=== PATIENT | male | born 1950 | race Caucasian/White ===

== ENCOUNTER 2019-02-01 13:56 | Inpatient (IN) | payer OTHER ==
[2019-02-01] MEDS ORDERED: MORPHINE 4 MG/ML SYR ONE (14:50)
[2019-02-01] MEDS ORDERED: ONDANSETRON 4 MG/2 ML VIAL ONE (14:50)
[2019-02-01] MEDS ORDERED: NA CHLORIDE 0.9% 1,000 ML ONE (14:50)
[2019-02-01 15:05] LABS: Absolute Lymphocytes (CBC) 2.9 K/uL (0.7-4.9); Basophils % 0.5 % (0-1.3); Hematocrit 43.8 % (39.6-49.0); Lymphocytes % 28.2 % (15.3-44.8); MPV 7.7 fL (7.6-11.3); RBC Red Blood Cell Count 5.01 M/uL (4.33-5.43)
[2019-02-01 15:25] LABS: Albumin 3.7 g/dL (3.4-5.0); Bilirubin Direct 0.1 mg/dL (0-0.2); Bilirubin Total 0.4 mg/dL (0.2-1.0); Protein, Total 7.8 g/dL (6.4-8.2)
--- NOTE | 2019-02-01 16:35 | RAD REPORT ---
EXAM DESCRIPTION: CT - Abdomen Pelvis W Contrast - 02/01/2019 3:44 pm CLINICAL HISTORY: Abdominal pain COMPARISON: None. TECHNIQUE: Biphasic, helical CT imaging of the abdomen and pelvis was performed following 100 ml non -ionic IV contrast. No oral contrast was given. All CT scans are performed using dose optimization technique as appropriate and may include automated exposure control or mA/KV adjustment according to patient size. FINDINGS: No suspicious findings in the lung bases. The liver, spleen, and pancreas show no suspicious findings. Gallbladder and biliary tree are also wi thout suspicious finding. Symmetric renal function is seen with no hydronephrosis or suspicious renal mass. No pyelonephritis o r acute parenchymal process. No bladder abnormalities. No adrenal abnormalities. No gastric dilatation or gastric wall thickening. Duodenum is normal. No dilation of the colon. Sigmo id diverticulosis is present without diverticulitis. The appendix is normal. The patient has a large complex ventral hernia. There are several compartments of this large hernia collectively measuring 22 cm in size. The hernia contains multiple loops of small bowel that extend into, out of and then gómez k into the hernia. The superior margin of the hernia contains the anti mesenteric margin of the mid t ransverse colon. There is stranding and adhesions the multiple compartments. Multiple dila rosita small bowel loops are present within the hernia as well as within the peritoneal cavity. No free air or pneumatosis. Point of obstruction appears to be adhesions or fibrotic stranding among the mult iple compartments of the hernia. No free air, free fluid or pneumatosis. Disc and bony degenerative changes are present. No acute vascular finding. IMPRESSION: Small bowel obstruction secondary to a large 22 centimeter complex ventral hernia. The h ernia has multiple compartments by fibrotic stranding and probable adhesions. The obstructi on is believed to be secondary to this fibrotic stranding and adhesions. Hernia contains multiple dilated and nondilated small bowel loops that are seen to enter, exit and re -enter 1 or more of the complex chambers of the hernia. Hernia contains a portion of the mid transver se colon. No free air. No perforation or surgically emergent finding otherwise noted.
--- NOTE | 2019-02-01 17:32 | EDPHYS ---
Physician Documentation [facility] Name: Torito Garcia Age: 68 yrs Sex: Male : 1950 Arrival Date: 02/01/2019 Time: 14:00 Bed 28 Private MD: Livan Jewell E ED Physician Trino Muñoz HPI: 02/01 14:39 This 68 yrs old Male presents to ER via Ambulatory with complaints of Hernia. jmm 14:39 The patient presents with abdominal pain. Onset: The symptoms/episode began/occurred jmm gradually, 2 week(s) ago. The symptoms do not radiate. Associated signs and symptoms: Pertinent positives: nausea. The symptoms are described as achy. This is a 68 year old male with a history of htn that presents to the ED with complaints of generalized abdominal pain beginning 2 weeks ago progressively worsened. Patient has a history of 4 bowel surgeries due to obstruction. Symptoms are worsened with eating. . Historical: - Allergies: 14:21 No Known Allergies; aa5 - Home Meds: 14:21 Atenolol Oral [Active]; lisinopril Oral [Active]; aa5 - PMHx: 14:21 Hypertension; aa5 - PSHx: 14:21 Hernia repair; aa5 - Immunization history:: Flu vaccine is not up to date. - Social history:: Smoking status: Patient/guardian denies using tobacco. - Ebola Screening: : No symptoms or risks identified at this time. ROS: 14:39 Constitutional: Negative for fever, chills, and weight loss, Cardiovascular: Negative jmm for chest pain, palpitations, and edema, Respiratory: Negative for shortness of breath, cough, wheezing, and pleuritic chest pain. 14:39 Abdomen/GI: Positive for abdominal pain, vomiting. 14:39 All other systems are negative. Exam: 14:39 Constitutional: This is a well developed, well nourished patient who is awake, alert, jmm and in no acute distress. Head/Face: atraumatic. Eyes: EOMI, no conjunctival erythema appreciated ENT: Moist Mucus Membranes Neck: Trachea midline, Supple Chest/axilla: Normal chest wall appearance and motion. Cardiovascular: Regular rate and rhythm. No edema appreciated Respiratory: Normal respirations, no respiratory distress appreciated 14:39 Back: Normal ROM Skin: General appearance color normal MS/ Extremity: Moves all extremities, no obvious deformities appreciated, no edema noted to the lower extremities Neuro: Awake and alert, normal gait Psych: Behavior is normal, Mood is normal, Patient is cooperative and pleasant 14:39 Abdomen/GI: Inspection: distension, that is moderate, Bowel sounds: active, Palpation: soft, mild abdominal tenderness, in all quadrants, Hernia: noted in the paraumbilical area and umbilical area. Vital Signs: 14:21 BP 145 / 79; Pulse 60; Resp 18 S; Temp 98.7(TE); Pulse Ox 96% on R/A; Weight 107.5 kg aa5 (R); Height 5 ft. 6 in. (167.64 cm) (R); Pain 7/10; 16:23 BP 120 / 75; Pulse 56; Resp 15; Pulse Ox 95% on R/A; aj1 17:30 BP 112 / 69; Pulse 57; Resp 16; Pulse Ox 96% on R/A; aj1 18:30 BP 125 / 68; Pulse 55; Resp 18; Pulse Ox 95% on R/A; aj1 14:21 Body Mass Index 38.25 (107.50 kg, 167.64 cm) aa5 MDM: 14:37 Patient medically screened. [facility] 17:29 Data reviewed: vital signs, nurses notes, lab test result(s), radiologic studies, CT [facility] scan. Counseling: I had a detailed discussion with the patient and/or guardian regarding: the historical points, exam findings, and any diagnostic results supporting the discharge/admit diagnosis, lab results, radiology results, the need for further work-up and treatment in the hospital. ED course: I discussed the patient with Dr. Redd whom will consult on admission. I discussed the patient with Kaushik Jordan PA-C whom accepted admission for Dr. Keene. . 02/01 14:37 Order name: Basic Metabolic Panel; Complete Time: 15:39 [facility] 02/01 14:37 Order name: CBC with Diff; Complete Time: 15:39 [facility] 02/01 14:37 Order name: Creatinine for Radiology; Complete Time: 15:39 [facility] 02/01 14:37 Order name: Hepatic Function; Complete Time: 15:39 [facility] 02/01 14:37 Order name: Lipase; Complete Time: 15:39 [facility] 02/01 14:37 Order name: Lactate; Complete Time: 15:39 [facility] 02/01 14:37 Order name: IV Saline Lock; Complete Time: 14:57 [facility] 02/01 14:38 Order name: CT Abd/Pelvis - IV Contrast Only; Complete Time: 17:28 [facility] 02/01 17:51 Order name: CONS Physician Consult [facility] 02/01 14:37 Order name: Labs collected and sent; Complete Time: 14:57 [facility] 02/01 17:15 Order name: NG Tube; Complete Time: 17:37 [facility] Administered Medications: 15:03 Drug: morphine 4 mg {Note: RASS score 0 Patient is alert.} Route: IVP; Site: left 1 antecubital; 16:05 Follow up: Response: No adverse reaction; Pain is decreased; RASS: Alert and Calm (0) [facility] 15:03 Drug: Zofran 4 mg Route: IVP; Site: left antecubital; [facility] 16:05 Follow up: Response: No adverse reaction [facility] 15:04 Drug: NS 0.9% 1000 ml Route: IV; Rate: 1 bolus; Site: left antecubital; [facility] 20:23 Follow up: IV Status: Completed infusion; IV Intake: 1000ml [facility] 17:55 CANCELLED (Patient Refused): Lidocaine Gel 2 % 1 application Mucous Membrane once [facility] 18:09 Not Given (pharmacy no longer supplies this medication): Hurricane Sheffield - Benzocaine 1 20 % 1 sprays Mucous Membrane in affected area once Disposition: 02/02 07:02 Co-signature as Attending Physician, Trino Muñoz MD. rn Disposition: 02/01/19 17:30 Hospitalization ordered by Belinda Keene for Inpatient Admission. Preliminary diagnosis is Bowel Obstruction. - Bed requested for Telemetry/MedSurg (Inpatient). - Status is Inpatient Admission. aj1 - Condition is Stable. - Problem is an acute exacerbation. - Symptoms have improved. UTI on Admission? No Signatures: Dispatcher [employer] [facility] Justyna Araujo Angela, RN RN aj1 Delfino Perez PA PA [facility] Trino Muñoz MD MD rn Calderon, Audri RN RN aa5 Corrections: (The following items were deleted from the chart) 02/01 17:55 17:46 Lidocaine Gel 2 % 1 application Mucous Membrane once ordered. [facility] aj1 18:53 17:30 Hospitalization Ordered by Belinda Keene MD for Inpatient Admission. Preliminary bd diagnosis is Bowel Obstruction. Bed requested for Telemetry/MedSurg (Inpatient). Status is Inpatient Admission. Condition is Stable. Problem is an acute exacerbation. Symptoms have improved. UTI on Admission? No. m 20:24 18:53 02/01/2019 17:30 Hospitalization Ordered by Belinda Keene MD for Inpatient aj1 Admission. Preliminary diagnosis is Bowel Obstruction. Bed requested for Telemetry/MedSurg (Inpatient). Status is Inpatient Admission. Condition is Stable. Problem is an acute exacerbation. Symptoms have improved. UTI on Admission? No. bd
--- NOTE | 2019-02-01 17:32 | ER ---
Nurse's Notes [facility] Name: Torito Garcia Age: 68 yrs Sex: Male : 1950 Arrival Date: 02/01/2019 Time: 14:00 Bed 28 Private MD: Livan Jewell E Diagnosis: Bowel Obstruction Presentation: 02/01 14:19 Presenting complaint: Patient states: "my stomach hurts, eating makes it worse and I aa5 have hernias". Pt reports abd pain x 2 weeks. Transition of care: patient was not received from another setting of care. Onset of symptoms was 2018. Risk Assessment: Do you want to hurt yourself or someone else? Patient reports no desire to harm self or others. Initial Sepsis Screen: Does the patient meet any 2 criteria? No. Patient's initial sepsis screen is negative. Does the patient have a suspected source of infection? No. Patient's initial sepsis screen is negative. Care prior to arrival: None. 14:19 Acuity: SAIGE 3 aa5 14:19 Method Of Arrival: Ambulatory aa5 Historical: - Allergies: 14:21 No Known Allergies; aa5 - Home Meds: 14:21 Atenolol Oral [Active]; lisinopril Oral [Active]; aa5 - PMHx: 14:21 Hypertension; aa5 - PSHx: 14:21 Hernia repair; aa5 - Immunization history:: Flu vaccine is not up to date. - Social history:: Smoking status: Patient/guardian denies using tobacco. - Ebola Screening: : No symptoms or risks identified at this time. Screenin:12 Abuse screen: Denies threats or abuse. Denies injuries from another. Nutritional aj1 screening: No deficits noted. Tuberculosis screening: No symptoms or risk factors identified. 20:22 Fall Risk None identified. aj1 Assessment: 15:00 General: Appears in no apparent distress. uncomfortable, Behavior is calm, cooperative, aj1 appropriate for age. Pain: Complains of pain in abdomen. Neuro: Level of Consciousness is awake, alert, obeys commands. Cardiovascular: Patient's skin is warm and dry. Respiratory: Airway is patent Respiratory effort is even, unlabored, Respiratory pattern is regular, symmetrical. GI: Abdomen is round distended, Bowel sounds hyperactive in right upper quadrant and left upper quadrant Abd is soft and non tender X 4 quads. Reports lower abdominal pain, upper abdominal pain, nausea, Patient currently denies vomiting. : No signs and/or symptoms were reported regarding the genitourinary system. EENT: No signs and/or symptoms were reported regarding the EENT system. Derm: No signs and/or symptoms reported regarding the dermatologic system. Skin is pink, warm \\T\\ dry. normal. Musculoskeletal: No signs and/or symptoms reported regarding the musculoskeletal system. Circulation, motion, and sensation intact. 16:23 Reassessment: Patient appears in no apparent distress at this time. No changes from aj1 previously documented assessment. Patient and/or family updated on plan of care and expected duration. Pain level reassessed. Patient is alert, oriented x 3, equal unlabored respirations, skin warm/dry/pink. 17:30 Reassessment: Patient and/or family updated on plan of care and expected duration. Pain aj1 level reassessed. General: Appears in no apparent distress. comfortable, Behavior is calm, cooperative, appropriate for age. Pain: Denies pain. Neuro: Level of Consciousness is awake, alert, obeys commands. Cardiovascular: Patient's skin is warm and dry. Respiratory: Airway is patent Respiratory effort is even, unlabored, Respiratory pattern is regular, symmetrical. GI: Abdomen is round distended, Bowel sounds hyperactive in right upper quadrant and left upper quadrant hypoactive in right lower quadrant and left lower quadrant Abd is soft and non tender X 4 quads. Reports nausea, Patient currently denies vomiting. Derm: No signs and/or symptoms reported regarding the dermatologic system. Skin is pink, warm \\T\\ dry. normal. Musculoskeletal: Circulation, motion, and sensation intact. 18:33 Reassessment: Patient appears in no apparent distress at this time. No changes from aj1 previously documented assessment. Patient and/or family updated on plan of care and expected duration. Pain level reassessed. Patient is alert, oriented x 3, equal unlabored respirations, skin warm/dry/pink. 19:30 Reassessment: Patient appears in no apparent distress at this time. No changes from aj1 previously documented assessment. Patient and/or family updated on plan of care and expected duration. Pain level reassessed. Patient is alert, oriented x 3, equal unlabored respirations, skin warm/dry/pink. 19:31 Reassessment: Attempted to call report to 4th floor, receiving nurse unable to take aj1 report at this time. Will attempt again in a few minutes. 20:00 Reassessment: Patient appears in no apparent distress at this time. No changes from aj1 previously documented assessment. Patient and/or family updated on plan of care and expected duration. Pain level reassessed. Patient is alert, oriented x 3, equal unlabored respirations, skin warm/dry/pink. Vital Signs: 14:21 BP 145 / 79; Pulse 60; Resp 18 S; Temp 98.7(TE); Pulse Ox 96% on R/A; Weight 107.5 kg aa5 (R); Height 5 ft. 6 in. (167.64 cm) (R); Pain 7/10; 16:23 BP 120 / 75; Pulse 56; Resp 15; Pulse Ox 95% on R/A; aj1 17:30 BP 112 / 69; Pulse 57; Resp 16; Pulse Ox 96% on R/A; aj1 18:30 BP 125 / 68; Pulse 55; Resp 18; Pulse Ox 95% on R/A; aj1 14:21 Body Mass Index 38.25 (107.50 kg, 167.64 cm) aa5 ED Course: 14:00 Patient arrived in ED. mr 14:00 Livan Jewell MD is Private Physician. mr 14:19 Arm band placed on. aa5 14:21 Triage completed. aa5 14:25 Delfino Perez PA is PHCP. [facility] 14:25 Trino Muñoz MD is Attending Physician. [facility] 14:41 aRdha Torrez, RN is Primary Nurse. aj1 14:56 Bed in low position. Call light in reach. Side rails up X 1. Pillow given. Verbal jp3 reassurance given. Pulse ox on. NIBP on. 14:56 Initial lab(s) drawn, by me, sent to lab. Inserted saline lock: 20 gauge in left jp3 antecubital area, using aseptic technique. Blood collected. Patient maintains SpO2 saturation greater than 95% on room air. 14:57 Lactate Sent. jp3 14:57 Basic Metabolic Panel Sent. jp3 14:57 CBC with Diff Sent. jp3 14:57 Creatinine for Radiology Sent. jp3 14:57 Hepatic Function Sent. jp3 14:57 Lipase Sent. jp3 15:45 CT Abd/Pelvis - IV Contrast Only In Process Unspecified. EDMS 16:12 No provider procedures requiring assistance completed. aj1 17:30 Belinda Keene MD is Hospitalizing Provider. jmm 17:38 NGT: inserted 16 Fr. via right nare. verified placement of air over stomach, to ca1 intermittent suction. Returned gastric contents. Patient tolerated well. 18:30 Patient admitted, IV remains in place. aj1 20:00 Report given to ALIE Sanchez. aj1 Administered Medications: 15:03 Drug: morphine 4 mg {Note: RASS score 0 Patient is alert.} Route: IVP; Site: left aj1 antecubital; 16:05 Follow up: Response: No adverse reaction; Pain is decreased; RASS: Alert and Calm (0) aj1 15:03 Drug: Zofran 4 mg Route: IVP; Site: left antecubital; aj1 16:05 Follow up: Response: No adverse reaction aj1 15:04 Drug: NS 0.9% 1000 ml Route: IV; Rate: 1 bolus; Site: left antecubital; aj1 20:23 Follow up: IV Status: Completed infusion; IV Intake: 1000ml aj1 17:55 CANCELLED (Patient Refused): Lidocaine Gel 2 % 1 application Mucous Membrane once aj1 18:09 Not Given (pharmacy no longer supplies this medication): Hurricane Harper - Benzocaine aj1 20 % 1 sprays Mucous Membrane in affected area once Intake: 20:23 IV: 1000ml; Total: 1000ml. aj1 Outcome: 17:30 Decision to Hospitalize by Provider. [facility] 20:22 Admitted to Med/surg accompanied by tech, via wheelchair, with chart. aj1 20:22 Condition: stable 20:22 Discharge instructions given to patient, Instructed on the need for admit, Demonstrated understanding of instructions. 20:24 Patient left the ED. aj1 Signatures: Dispatcher [employer] EDMS Radha Torrez, RN RN aj1 Delfino Perez PA PA Kylah Thomas HarpCammie catalan, RN RN aa5 Geoff Davis jp3 Brittney Gupta RN RN ca1
[2019-02-01] MEDS ORDERED: LIDOCAINE VISCOUS 2% SOLN 15 ML UDC ONE (18:02)
--- NOTE | 2019-02-01 18:16 | P.HP ---
Certification for Inpatient Patient admitted to: Inpatient With expected LOS: >2 Midnights Patient will require the following post-hospital care: None Practitioner: I am a practitioner with admitting privileges, knowledge of patient current condition, hospital course, and medical plan of care. Services: Services provided to patient in accordance with Admission requirements found in Title 42 Section 412.3 of the Code of Federal Regulations <Aldo Jordan - Last Filed: 02/01/19 18:10> Patient History Date of Service: 02/01/19 Primary Care Provider: Jewell Reason for admission: Small bowel obstruction History of Present Illness: This is a 68-year-old male that came to the emergency department day you for week long history of abdominal pain that is progressively getting worse. Having associated nausea as well. History of small-bowel obstructions secondary to hernias in the past. Patient stated that his abdomen is becoming more distended and he is becoming more nauseated. Labs and CT with IV contrast was completed in the emergency department showing small-bowel obstruction. Nasogastric tube was placed with immediate output of about 300 mL. Patient hemodynamically stable and feeling better. Labs unremarkable. Doctor Wai Redd will be consulting on the case. Home medications list reviewed: Yes - Past Medical/Surgical History Has patient received pneumonia vaccine in the past: No Diabetic: No -: Hernia -: Hernia repair -: Small bowel resection - Social History Smoking Status: Never smoker Alcohol use: No CD- Drugs: No Caffeine use: No Place of Residence: Home <Aldo Jordan - Last Filed: 02/01/19 18:10> Date of Service: 02/01/19 <Belinda Keene - Last Filed: 02/01/19 18:29> Review of Systems General: Unremarkable Eyes: Unremarkable ENT: Unremarkable Respiratory: Unremarkable Cardiovascular: Unremarkable Gastrointestinal: Nausea, Abdominal Pain, Distention, As per HPI Musculoskeletal: Unremarkable Integumentary: Unremarkable Neurological: Unremarkable Lymphatics: Unremarkable <Aldo Jordan - Last Filed: 02/01/19 18:10> Physical Examination - Vital Signs Temperature: 98.7 F Blood Pressure: 145/79 Pulse: 60 Respirations: 18 Pulse Ox (%): 96 - Physical Exam General: Alert, In no apparent distress, Oriented x3, Cooperative HEENT: Normocephalic, PERRLA, Mucous membr. moist/pink, EOMI Neck: Supple, 2+ carotid pulse no bruit, JVD not distended, No Thyromegaly, No LAD Respiratory: Clear to auscultation bilaterally, Normal air movement Cardiovascular: No edema, Normal pulses, Regular rate/rhythm, Normal S1 S2, No gallops, No rubs, No murmurs Capillary refill: <2 Seconds Gastrointestinal: Normal bowel sounds, No masses, No rebound, No guarding, Distended, Tenderness (Mild tenderness diffusely) Musculoskeletal: No clubbing, No swelling, No contractures, No erythema, No tenderness, No warmth Integumentary: No rashes, No breakdown, No significant lesion, No tenderness/ swelling, No erythema, No warmth, No cyanosis Neurological: Normal speech, Normal strength at 5/5 x4 extr, Normal tone, Sensation intact, Cranial nerves 3-12 intact, Normal reflexes 2+, Normal affect Lymphatics: No axilla or inguinal lymphadenopathy - Studies Laboratory Data (last 24 hrs) 02/01/19 14:50: Creatinine 1.11 02/01/19 14:50: WBC 10.2, Hgb 14.6, Hct 43.8, Plt Count 257 02/01/19 14:50: Sodium 141, Potassium 4.0, BUN 14, Creatinine 1.11, Glucose 91, Total Bilirubin 0.4, AST 13 L, ALT 20, Alkaline Phosphatase 87, Lipase 131 <Aldo Jordan - Last Filed: 02/01/19 18:10> - Studies Laboratory Data (last 24 hrs) 02/01/19 14:50: Creatinine 1.11 02/01/19 14:50: WBC 10.2, Hgb 14.6, Hct 43.8, Plt Count 257 02/01/19 14:50: Sodium 141, Potassium 4.0, BUN 14, Creatinine 1.11, Glucose 91, Total Bilirubin 0.4, AST 13 L, ALT 20, Alkaline Phosphatase 87, Lipase 131 <Belinda Keene - Last Filed: 02/01/19 18:29> Assessment and Plan - Problems (Diagnosis) (1) Hypertension Current Visit: Yes Status: Chronic Qualifiers: Hypertension type: essential hypertension Qualified Code(s): I10 - Essential (primary) hypertension (2) Small bowel obstruction Current Visit: Yes Status: Acute (3) Ventral hernia Current Visit: Yes Status: Chronic Qualifiers: Obstruction and gangrene presence: without obstruction or gangrene Qualified Code(s): K43.9 - Ventral hernia without obstruction or gangrene - Plan The patient will be admitted to the hospitalist team. General Surgery has been consulted. Patient has a NG tube and that will be remain in place and will be connected to low intermittent suction to decompress small-bowel. Patient will be given IV fluids continuously and also pain meds and nausea meds as needed. Blood pressure will be controlled via IV medication. Patient will remain NPO. Labs will be assessed daily along with physical exam to ensure small-bowel obstruction is resolving. It is expected that patient will be here for least 2 days. Discharge Plan: Home Plan to discharge in: Greater than 2 days - Advance Directives Does patient have a Living Will: No Does patient have a Durable POA for Healthcare: No - Code Status/Comfort Care Code Status Assessed: Yes Code Status: Full Code Critical Care: No Time Spent Managing Pts Care (In Minutes): 50 <Aldo Jordan - Last Filed: 02/01/19 18:10> Physician Review: Patient Assessed, Agree with Above Assessment and Plan <Belinda Keene - Last Filed: 02/01/19 18:29>
[2019-02-01] MEDS ORDERED: METOPROLOL TARTRATE 5 MG/5 ML INJ IV PRN (20:35)
[2019-02-01] MEDS ORDERED: MORPHINE 4 MG/ML SYR IV PRN (20:35)
[2019-02-01 22:18] VITALS: BMI 37.9
[2019-02-01] MEDS: D5 0.45 NS 1,000 ML IV SCH (22:41)
[2019-02-02 02:24] LABS: Urine Appearance CLEAR; Urine Blood NEGATIVE (NEG); Urine Color YELLOW; Urine Glucose NEGATIVE (NEG); Urine Protein NEGATIVE (NEG); Urine Specific Gravity >=1.030 (1.005-1.030); Urine pH 5.5 (5.0-7.0)
[2019-02-02 03:07] LABS: Urine Microscopic Reflex NO UMIC
[2019-02-02 03:58] LABS: Urine Bilirubin NEGATIVE (NEG)
[2019-02-02 04:16] LABS: MPV 7.8 fL (7.6-11.3)
[2019-02-02 04:21] LABS: Absolute Lymphocytes (CBC) 3.5 K/uL (0.7-4.9); Basophils % 0.7 % (0-1.3); Hematocrit 40.5 % (39.6-49.0); Lymphocytes % 35.2 % (15.3-44.8); RBC Red Blood Cell Count 4.59 M/uL (4.33-5.43)
[2019-02-02 04:41] LABS: Potassium 3.9 mmol/L (3.5-5.1)
[2019-02-02] MEDS: D5 0.45 NS 1,000 ML IV SCH ×2 (05:36→17:45)
[2019-02-02] MEDS ORDERED: PNEUMOCOCCAL VACCINE 0.5 ML IMVAC ONE (08:00)
--- NOTE | 2019-02-02 12:48 | CON ---
Date of Consultation: 02/02/2019 Brief History Of Present Illness: Patient is a 68-year-old male who came into the hospital with approximately 2-week history of worsening abdominal pain globally over his abdomen. He states that he has had bloating, distention, and belching. No emesis but had 1 episode of attempted emesis himself which was unsuccessful, passing anything other than gas and some phlegm. He continues to hav e bowel movements every day and passes gas but he felt that the pain got progressively worse, was a c rescendo decrescendo type pain over his global abdomen, worse in the bilateral upper quadrants. He h as not had similar episodes before in the past. He had an NG tube placed in the emergency room, matt h gave him significant immediate relief as well. His past medical history is significant for umbilical hernia repair beginning in 2001. He has had 5 or 6 abdominal hernia surgeries. His followup from the initial was for hernia recurrence with ingrow th of intestine into the mesh. He had a biologic mesh placed at that time, had a recurrence, had ano ther mesh replaced following that by his report and ultimately had that mesh removed as well and he h ad a primary closure at that time, being told that he would likely have a recurrence. He is unsure i f he had a mesh placed on the last surgery, which would have been biologic. He thinks if it was plac ed, but cannot remember the details, this was in 2017. He now comes back with a recurrent abdominal ventral hernia with abdominal pain and nausea and vomiting as described. He denies smoking, alcohol, recreational drug use. Physical Examination: Vital Signs: At the time of my examination are a BMI of 37. His blood pressure was 141/77, pulse 56 , respiratory rate 18, temperature 97.9. General: He is awake, alert, oriented. Psychiatric: Appropriate, conversive. HEENT: Normocephalic. Sclerae icteric. Mucosa membranes are moist. Oropharynx clear. Neck: Supple. No JVD. Chest: Normal expansion and excursion. Cardiovascular: Regular rate and rhythm. Pulmonary: Clear to auscultation bilaterally. Abdomen: Soft with global tenderness, mild tenderness to palpation. No rebound. No guarding. No f ocal peritonitis. He has a well-healed surgical scar in the midline. There is multiple ventral marguerite ias to the midline and ventral abdominal wall, but his abdomen is also generally obese. Extremities: No clubbing, cyanosis, or edema. Laboratory Data: Reveals white blood cell count of 9.9, hemoglobin 13.6, hematocrit of 40.5, platele t count is 203, neutrophils are normal at 54%. His sodium is 143, potassium 3.9, chloride 108, carbo n dioxide 30, BUN 12, creatinine 1.1, glucose is 100, calcium 8.2, AST 13, ALT 20, alkaline phosphata se is 87, lipase 131. UA was negative. He had a CT scan performed of the abdomen and pelvis. The o fficial dictation is read as small bowel obstruction secondary to a large 22 cm complex ventral herni a. The hernia has multiple compartment by fibrotic stranding and probable adhesions. The obstruction is believed to be secondary due to this fibrotic stranding and adhesions. Hernia contain s multiple dilated, nondilated small bowel loops that are seen to enter, exit, re-enter, 1 or more co mplex chambers of the hernia. Hernia contains a portion of the mid transverse colon as well. There is no free air, no perforation or surgically emergent findings otherwise. Assessment And Plan: This is a 68-year-old male who comes in with a complex ventral abdominal wall c ausing a partial small bowel obstruction. 1.IV fluid hydration. 2.N.p.o. status and continue NG tube decompression. 3.Serial abdominal exams. 4.If patient is able to successfully be treated nonoperatively, I recommend outpatient surgical dyan nstruction of his abdominal wall preferably in laparoscopic approach. However, I recommend getting a ll of his previous surgical notes. Reviewing his past imaging, with his current imaging to help surg ical planning for a reconstruction should he get through this episode without any need for emergent s urgery. I have explained the risks, benefits, alternatives of the above stated plan. The patient agrees to proceed as indicated. IVAN/ALBERTO Voice ID: [id number] Report ID: [id number]
[2019-02-02] MEDS: ONDANSETRON 4 MG/2 ML VIAL IV PRN (13:21)
--- NOTE | 2019-02-02 15:06 | P.PN ---
Subjective Date of Service: 02/02/19 Primary Care Provider: Fanta Chief Complaint: Small bowel obstruction Subjective: Improving Patient seen and examined at bedside. Chart reviewed and case discussed with nursing staff. Patient doing better today. Nausea still there, denies any vomiting this am. Abdominal pain resolved Reports no bowel movement since yesterday but passing gas today. Review of Systems 10-point ROS is otherwise unremarkable Physical Examination - Vital Signs Temperature: 97.5 F Blood Pressure: 116/71 Pulse: 54 Respirations: 18 Pulse Ox (%): 93 - Physical Exam General: Alert, In no apparent distress, Obese HEENT: Atraumatic, PERRLA, EOMI Neck: Supple, JVD not distended Respiratory: Clear to auscultation bilaterally, Normal air movement Cardiovascular: Regular rate/rhythm, Normal S1 S2 Gastrointestinal: Normal bowel sounds, No tenderness Musculoskeletal: No tenderness Integumentary: No rashes Neurological: Normal speech, Normal tone, Normal affect Lymphatics: No axilla or inguinal lymphadenopathy - Studies Laboratory Data (last 24 hrs) 02/01/19 14:50: Creatinine 1.11 02/01/19 14:50: WBC 10.2, Hgb 14.6, Hct 43.8, Plt Count 257 02/01/19 14:50: Sodium 141, Potassium 4.0, BUN 14, Creatinine 1.11, Glucose 91, Total Bilirubin 0.4, AST 13 L, ALT 20, Alkaline Phosphatase 87, Lipase 131 Assessment And Plan - Current Problems (Diagnosis) (1) Small bowel obstruction Current Visit: Yes Status: Acute Plan: Likely secondary to adhesions/scar tissue from prior surgeries vs large hernia. -General surgery consult, recommendations appreciated. Recommends no surgical intervention at this time. -Continue medical management - keep NPO, NGT in place with LIWS. -NGT continues to drain. -Pain and nausea control (2) Hypertension Current Visit: Yes Status: Chronic Plan: Will continue IV blood pressure medications. Monitor and adjust as needed. Qualifiers: Hypertension type: essential hypertension Qualified Code(s): I10 - Essential (primary) hypertension (3) Ventral hernia Current Visit: Yes Status: Chronic Qualifiers: Obstruction and gangrene presence: without obstruction or gangrene Qualified Code(s): K43.9 - Ventral hernia without obstruction or gangrene Physician Review: Patient Assessed, Agree with Above Assessment and Plan
[2019-02-02 16:53] VITALS: O2SAT 94
[2019-02-03] MEDS: ONDANSETRON 4 MG/2 ML VIAL IV PRN (01:54)
[2019-02-03] MEDS: D5 0.45 NS 1,000 ML IV SCH ×3 (01:54→23:47)
[2019-02-03] MEDS ORDERED: PANTOPRAZOLE 40 MG INJ IVP ONE (04:19)
--- NOTE | 2019-02-03 11:11 | P.PN ---
Subjective Date of Service: 02/03/19 Primary Care Provider: Fanta Chief Complaint: Small bowel obstruction Subjective: Improving (no pain, no nausae, + return of bowel function, +BM and gas, ambulatory) Physical Examination - Vital Signs Temperature: 97.5 F Blood Pressure: 138/83 Pulse: 62 Respirations: 17 Pulse Ox (%): 94 - Physical Exam General: Alert, In no apparent distress, Cooperative Respiratory: Clear to auscultation bilaterally Gastrointestinal: Soft and benign, Non-distended, No ascites, No tenderness Assessment And Plan - Current Problems (Diagnosis) (1) Small bowel obstruction Current Visit: Yes Status: Acute Plan: - DC NG tube - start sips of clears - ambulate with assist Physician Review: Patient Assessed, Agree with Above Assessment and Plan
--- NOTE | 2019-02-03 14:59 | P.PN ---
Subjective Date of Service: 02/03/19 Primary Care Provider: Fanta Chief Complaint: Small bowel obstruction Subjective: No C/O voiced, Improving Patient seen and examined at bedside. Chart reviewed and case discussed with nursing staff. Patient doing better today. NG tube out today. Denies any abdominal pain, nausea, vomiting, chest pain or shortness of breath. Reports no bowel movement since yesterday but passing gas today. Review of Systems 10-point ROS is otherwise unremarkable Physical Examination - Vital Signs Temperature: 98.1 F Blood Pressure: 140/74 Pulse: 64 Respirations: 17 Pulse Ox (%): 95 - Physical Exam General: Alert, In no apparent distress, Oriented x3 HEENT: Atraumatic, PERRLA, EOMI Neck: Supple, JVD not distended Respiratory: Clear to auscultation bilaterally, Normal air movement Cardiovascular: Regular rate/rhythm, Normal S1 S2 Gastrointestinal: Normal bowel sounds, No tenderness Musculoskeletal: No tenderness Integumentary: No rashes Neurological: Normal speech, Normal tone, Normal affect Lymphatics: No axilla or inguinal lymphadenopathy Assessment And Plan - Current Problems (Diagnosis) (1) Small bowel obstruction Current Visit: Yes Status: Acute Plan: Likely secondary to adhesions/scar tissue from prior surgeries vs large hernia. -General surgery consult, recommendations appreciated. Recommends no surgical intervention at this time. -Continue medical management - NG tube now out. Will start clear liquids and advance as tolerated. -Pain and nausea control as needed (2) Hypertension Current Visit: Yes Status: Chronic Plan: Will restart oral blood pressure medications as tolerated. Monitor and adjust as needed. Qualifiers: Hypertension type: essential hypertension Qualified Code(s): I10 - Essential (primary) hypertension (3) Ventral hernia Current Visit: Yes Status: Chronic Qualifiers: Obstruction and gangrene presence: without obstruction or gangrene Qualified Code(s): K43.9 - Ventral hernia without obstruction or gangrene - Plan Disposition: Pending symptomatic improvement. Anticipate discharge home in the next 24-48 hr once tolerating a least GI soft. Physician Review: Patient Assessed, Agree with Above Assessment and Plan
[2019-02-04 08:29] VITALS: BP 130/78; TEMP 97.8
[2019-02-04] MEDS ORDERED: ATENOLOL 25 MG TAB PO SCH (09:00)
[2019-02-04] MEDS ORDERED: LISINOPRIL 10 MG TAB PO SCH (09:00)
[2019-02-04] MEDS: D5 0.45 NS 1,000 ML IV SCH (09:08)
--- NOTE | 2019-02-04 10:50 | P.PN ---
Subjective Date of Service: 02/04/19 Primary Care Provider: Fanta Chief Complaint: Small bowel obstruction Subjective: Improving (tolerated soft diet, + bm, ambulatory, pain completely resolved) Physical Examination - Vital Signs Temperature: 97.8 F Blood Pressure: 130/78 Pulse: 68 Respirations: 20 Pulse Ox (%): 94 - Physical Exam General: Alert, In no apparent distress, Cooperative Gastrointestinal: Soft and benign, Non-distended, No ascites, No tenderness, No masses, No rebound, No guarding, Other (+ multiple reducible ventral hernias) Assessment And Plan - Current Problems (Diagnosis) (1) Small bowel obstruction Current Visit: Yes Status: Acute Plan: - DC NG tube - start sips of clears - ambulate with assist Physician Review: Patient Assessed, Agree with Above Assessment and Plan
--- NOTE | 2019-02-04 18:41 | P.DS ---
Admission Date: 02/01/19 Discharge Date: 02/04/19 Primary Care Provider: Fanta Disposition: ROUTINE DISCHARGE Discharge Condition: GOOD Reason for Admission: Small bowel obstruction Consultations: General surgery Procedures: NG tube placement and removal - Problems (1) Small bowel obstruction Status: Acute (2) Hypertension Status: Chronic Qualifiers: Hypertension type: essential hypertension Qualified Code(s): I10 - Essential (primary) hypertension (3) Ventral hernia Status: Chronic Qualifiers: Obstruction and gangrene presence: without obstruction or gangrene Qualified Code(s): K43.9 - Ventral hernia without obstruction or gangrene Brief History of Present Illness: This is a 68-year-old male that came to the emergency department day you for week long history of abdominal pain that is progressively getting worse. Having associated nausea as well. History of small-bowel obstructions secondary to hernias in the past. Patient stated that his abdomen is becoming more distended and he is becoming more nauseated. Labs and CT with IV contrast was completed in the emergency department showing small-bowel obstruction. Nasogastric tube was placed with immediate output of about 300 mL. Patient hemodynamically stable and feeling better. Labs unremarkable. Doctor Wai Redd will be consulting on the case. Hospital Course: Patient was admitted for small bowel obstruction likely secondary to adhesions/ scar tissue from prior surgeries versus a large hernia. General surgery was consulted. An NG tube was placed, patient was kept NPO. His symptoms improved , NG tube was pulled out. He was started on clear liquids and his diet was advanced as he could tolerate. His symptoms improved and then resolved completely prior to discharge. Prior to discharge, he was also tolerating a GI soft diet and he was complaining symptom-free any problems and he was hemodynamically stable. His labs were also stable. He was then cleared for discharge by general surgery. His diagnoses and treatment plan was explained to him, all questions were answered and he verbalized understanding. She was then discharged home in a safe and stable manner. He was instructed to follow up with general surgery in 2 weeks. He is also instructed to follow up with is primary care physician in a few days. Vital Signs/Physical Exam: Temp Pulse Resp BP Pulse Ox 97.8 F 68 20 130/78 94 02/04/19 10:50 02/04/19 10:50 02/04/19 10:50 02/04/19 10:50 02/04/19 10:50 General: Alert, In no apparent distress, Oriented x3 HEENT: Atraumatic, PERRLA, EOMI Neck: Supple, JVD not distended Respiratory: Clear to auscultation bilaterally, Normal air movement Cardiovascular: Regular rate/rhythm, Normal S1 S2 Gastrointestinal: Normal bowel sounds, No tenderness Musculoskeletal: No tenderness Integumentary: No rashes Neurological: Normal speech, Normal tone, Normal affect Lymphatics: No axilla or inguinal lymphadenopathy Laboratory Data at Discharge: WBC 9.9 K/uL (4.3-10.9) 02/02/19 03:36 Hgb 13.6 g/dL (13.6-17.9) 02/02/19 03:36 Hct 40.5 % (39.6-49.0) 02/02/19 03:36 Plt Count 203 K/uL (152-406) D 02/02/19 03:36 Sodium 143 mmol/L (136-145) 02/02/19 03:36 Potassium 3.9 mmol/L (3.5-5.1) 02/02/19 03:36 BUN 12 mg/dL (7-18) 02/02/19 03:36 Creatinine 1.11 mg/dL (0.55-1.3) 02/02/19 03:36 Glucose 100 mg/dL (74-106) 02/02/19 03:36 Total Bilirubin 0.4 mg/dL (0.2-1.0) 02/01/19 14:50 AST 13 U/L (15-37) L 02/01/19 14:50 ALT 20 U/L (12-78) 02/01/19 14:50 Alkaline Phosphatase 87 U/L (45-117) 02/01/19 14:50 Lipase 131 U/L (73-393) 02/01/19 14:50 Home Medications: Atenolol [Tenormin*] 1 tab PO DAILY 02/01/19 Lisinopril 1 tab PO DAILY 02/01/19 Patient Discharge Instructions: Please follow up with the primary care physician in 2-3 days. Please follow up with general surgery in 2 weeks. Please return to the emergency room for worsening symptoms. Diet: GI soft, small portions Activity: Ad helga Followup: Livan Jewell MD [Primary Care Provider] - (call to schedule appointment) Wai Redd MD [ACTIVE - CAN ADMIT] - (call to schedule appointment) Time spent managing pt's care (in minutes): 55
[2019-02-04] MEDS ORDERED: DOCUSATE NA 100 MG CAP PO SCH (21:00)
== END 2019-02-04 11:45 | disposition home or self-care (01) | DRG 390 ==
LOC: ER 13:56 → ERHOLD 17:47 → 4TH 19:57
PROVIDERS: ADMIT Family Medicine; ATTEND Family Medicine
DX: K56.609 Unspecified intestinal obstruction, unspecified as to partial versus complete obstruction (principal); K43.9 Ventral hernia without obstruction or gangrene; I10 Essential (primary) hypertension
CPT/HCPCS: 36415; 74177; 80048; 80076; 81003; 83605; 83690; 85025; 96361; 96374; 96375; 99285; C9113; J2405; J7030; Q9967

== ENCOUNTER 2019-03-08 08:41 | Day surgery (SDC) | payer OTHER ==
[2019-03-08] MEDS ORDERED: Ringers Lactate 1,000 ML IV ONE (09:01)
[2019-03-08] MEDS ORDERED: PROPOFOL 200 MG/20 ML VIAL IV ONE (11:25)
[2019-03-08] MEDS ORDERED: LIDOCAINE 1% MPF 5 ML VIAL ONE (11:25)
--- NOTE | 2019-03-08 12:01 | ENDO RPT ---
[address], [address] COLONOSCOPY PROCEDURE REPORT EXAM DATE: 03/08/2019 PATIENT NAME: Torito Garcia MR #: [id number] BIRTHDATE: 1950 ATTENDING: Wai Redd DR STATUS: outpatient ELECTRICAL AND INSTRUMENT TECHNICIAN: Ludivina Moyer RN and Randy David [facility] INDICATIONS: The patient is a 68 yr old Male here for a colonoscopy due to colon cancer screening PROCEDURE PERFORMED: Colonoscopy with biopsy - cold polypectomy and Colonoscopy with Polyloop MEDICATIONS: Per Anesthesia. ESTIMATED BLOOD LOSS: None CONSENT: The patient understands the risks and benefits of the procedure and understands that these risks include, but are not limited to: sedation, allergic reaction, infection, perforation and/or bleeding. Alternative means of evaluation and treatment include, among others: physical exam, x-rays, and/or surgical intervention. The patient elects to proceed with this endoscopic procedure. DESCRIPTION OF PROCEDURE: During intra-op preparation period all mechanical medical equipment was checked for proper function. Hand hygiene and appropriate measures for infection prevention was taken. Procedure, possible complications, alternatives including, but not limited to possibility of bleeding, perforation, tear, infection, sepsis, need for surgery, need for blood transfusion, were explained to the patient. After the risks, benefits and alternatives of the procedure were thoroughly explained, Informed consent was verified, confirmed and timeout was successfully executed by the treatment team. The patient was placed in the left lateral position. A digital rectal exam was performed and revealed internal hemorrhoids. After appropriate level of anesthesia, the scope was passed. The EC-[id number] ([id number]) endoscope was introduced through the anus and advanced to the cecum, which was identified by both the appendix and ileocecal valve. The quality of the prep was fair. The instrument was then slowly withdrawn as the colon was fully examined. Scope withdrawal time was 10 minutes. COLON FINDINGS: A polypoid shaped and fungating pedunculated polyp measuring 10 mm in size was found at the appendiceal orifice. A polypectomy was performed using snare cautery. The resection was complete, the polyp tissue was completely retrieved and sent to histology. Mild diverticulosis was noted in the sigmoid colon. No bleeding was noted from the diverticulosis. Moderate sized internal hemorrhoids were found. Retroflexed views revealed no abnormalities. The scope was then completely withdrawn from the patient and the procedure terminated. ADVERSE EVENTS: There were no complications. IMPRESSIONS: 1. Pedunculated polyp was found at the appendiceal orifice; polypectomy was performed using snare cautery 2. Mild diverticulosis was noted in the sigmoid colon 3. Moderate sized internal hemorrhoids RECOMMENDATIONS: 1. avoid NSAIDS for 2 weeks 2. fiber rich diet 3. await biopsy results 4. follow-up: office 2 week(s) 5. Monitor for any evidence of rectal bleeding. 6. increase dietary water RECALL: Return in 1 year(s) for Colonoscopy, pending biopsy results. Wai Redd DR eSigned: Wai Redd DR 03/08/2019 12:00 PM cc: CPT CODES: ICD9 CODES: 1. 455.2 Internal hemorrhoids with other complication 2. 211.3 Benign neoplasm of colon PATIENT NAME: Torito Garcia MR#: [id number]
[2019-03-08 12:43] VITALS: TEMP 98.1
[2019-03-08 12:46] VITALS: BP 91/57; O2SAT 95
== END 2019-03-08 12:38 | disposition home or self-care (01) ==
LOC: OR 08:41
PROVIDERS: ATTEND Surgery
PROC: 0DBH8ZX Excision of Cecum, Via Natural or Artificial Opening Endoscopic, Diagnostic (ICD-10-PCS; principal; 2019-03-08 10:30)
DX: Z12.11 Encounter for screening for malignant neoplasm of colon (principal); C18.0 Malignant neoplasm of cecum; K57.30 Diverticulosis of large intestine without perforation or abscess without bleeding; K64.8 Other hemorrhoids; J62.8 Pneumoconiosis due to other dust containing silica; I10 Essential (primary) hypertension
CPT/HCPCS: 88305; 45385; J2704; J7120

== ENCOUNTER 2019-03-15 08:35 | Observation (INO) | payer OTHER ==
[2019-03-15] MEDS ORDERED: Ringers Lactate 1,000 ML IV ONE (09:06)
[2019-03-15] MEDS ORDERED: BUPIVACA 0.5%/EPI 0.0005%/PF 30 ML VIAL ONE ×2 (10:32→10:34)
[2019-03-15] MEDS ORDERED: PROPOFOL 200 MG/20 ML VIAL IV ONE (10:39)
[2019-03-15] MEDS ORDERED: FENTANYL CITR 100 MCG/2 ML ONE ×2 (10:40→13:18)
[2019-03-15] MEDS ORDERED: MIDAZOLAM HCL 2 MG/2 ML INJ ONE (10:40)
[2019-03-15] MEDS ORDERED: LIDOCAINE 1% MPF 5 ML VIAL ONE (10:40)
[2019-03-15] MEDS ORDERED: ROCURONIUM 50 MG/5 ML VIAL IV ONE (10:40)
[2019-03-15] MEDS: CEFAZOLIN/SWI 2gm 2 GM/20 ML SYR ONE ×2 (10:44→10:49)
[2019-03-15] MEDS ORDERED: EPHEDRINE SULF 50 MG/ML VIAL ONE (11:17)
[2019-03-15] MEDS ORDERED: NS 0.9% VIAL 10 ML ONE (11:17)
[2019-03-15] MEDS: Ringers Lactate 1,000 ML IV ONE ×2 (12:33→12:36)
[2019-03-15] MEDS ORDERED: ONDANSETRON 4 MG/2 ML VIAL ONE (12:50)
[2019-03-15] MEDS ORDERED: KETOROLAC 30 MG/ML INJ ONE (12:50)
[2019-03-15] MEDS ORDERED: NEOSTIGMINE 1 MG/ML -10 ML VIAL ONE (12:51)
[2019-03-15] MEDS ORDERED: GLYCOPYRROLATE 0.2 MG/ML SYR ONE (12:51)
--- NOTE | 2019-03-15 13:51 | P.OP ---
Preoperative diagnosis: Recurrent Complex Ventral Hernia Postoperative diagnosis: Recurrent Complex Ventral Hernia Primary procedure: Laparoscopic Ventral Hernia Repair with Mesh Secondary procedure: Laparoscopic Adhesiolysis >2 hours Anesthesia: GETA + Local Estimated blood loss: <20cc Specimen: None Findings: Complex [place] Cheese ventral hernias with old mesh, tacks in place, adhesio Complications: None Implants: Bard Ventralite 8"x10" mesh with echo position Transferred to: Recovery Room Condition: Good
[2019-03-15] MEDS: Ringers Lactate 1,000 ML IV SCH ×2 (14:16→17:53)
[2019-03-15] MEDS ORDERED: HYDROMORPHONE HCL 1 MG/ML INJ IV PRN (14:16)
[2019-03-15] MEDS ORDERED: CEFAZOLIN/SWI 1gm 1 GM/10 ML SYR ONE (14:27)
[2019-03-15] MEDS ORDERED: CEFAZOLIN/SWI 1gm 1 GM/10 ML SYR IV ONE (14:30)
[2019-03-15] MEDS: HYDROMORPHONE HCL 1 MG/ML INJ ONE ×2 (14:50→14:55)
--- NOTE | 2019-03-15 15:15 | EKG ---
Test Date: 2019-03-15 Test Time: 08:56:29 Hob Grinder: JESSY MEASUREMENT RESULTS: Intervals: Rate: 56 AK: 170 QRSD: 86 QT: 394 QTc: 380 [place]: P: 49 AK: 170 QRS: -5 T: 53 INTERPRETIVE STATEMENTS: Sinus bradycardia Possible Anterior infarct, age undetermined Abnormal ECG No previous ECG available for comparison Electronically Signed On 03-15-19 15:14:20 CDT by Tono Penny
[2019-03-15] MEDS: INSULIN -REGULAR HUMAN 50 UNIT/0.5 ML ML SQ SCH ×2 (16:30→21:00)
[2019-03-15 16:48] VITALS: BMI 35.5
[2019-03-15] MEDS: HYDROCODONE/APAP 7.5/325 MG TAB PO PRN ×2 (17:59→22:06)
[2019-03-15] MEDS: PANTOPRAZOLE 40MG TABLET PO SCH (22:37)
--- NOTE | 2019-03-16 01:15 | OP ---
Date of Procedure: 03/15/2019 Surgeon: Wai Redd MD, Postoperative Diagnosis: Recurrent complex ventral hernia. Postoperative Diagnosis: Recurrent complex ventral hernia. Procedure Performed: 1.Laparoscopic ventral hernia repair with mesh. 2.Laparoscopic adhesiolysis greater than 2 hours. Anesthesia: General endotracheal plus local. Estimated Blood Loss: Less than 20 cc. Specimen: None. Findings: 1.Complex Syrian cheese ventral abdominal hernias. 2.Multiple pieces of mesh placed previously causing firm adhesions between the small bowel and the m esh. 3.Tacks were exposed in some cases. These were removed. Other tacks were visible and found to be i n good approximation and apposition with previously placed mesh and were left intact. 4.Firm dense adhesions between multiple loops of small bowel entering multiple complex ventral abdom inal hernias requiring reduction. These were incarcerated-type hernias. Complications: None. Implants: Bard Ventralight ST 8 x 10 inch mesh with Echo Positioning System. Disposition: Transferred to recovery room in good condition. Procedure In Detail: After informed was obtained, patient was brought to the operating room, prepped and draped in the usual sterile fashion after adequate anesthesia achieved. An area of the skin on the left lower abdomen was anesthetized appropriately with 0.25% Marcaine, sharply incised a 5 mm 0 d egree optical trocar was used to enter the abdomen without evidence of complication. Multiple adhesi ons were appreciated, but there was no injury to vital structures upon entry into the abdomen. A tot al of 6 trocars were placed and additional 5 mm trocars were placed under direct visualization withou t evidence of complication in the left upper quadrant, left mid quadrant, left lower quadrant and the n 3 additional trocars placed in the right side of the abdomen in the right middle, right upper and r ight lower quadrants, all under direct visualization. The left mid quadrant was then up-sized to a 1 2 mm trocar under direct visualization without evidence of complication. Adhesiolysis took place usi ng LigaSure and gentle traction for approximately 2 hours, taking multiple loops of small bowel out o f the anterior abdominal wall complex ventral abdominal wall hernia, which had a Syrian cheese appeara nce. They were both thin alveolar as well as multiple thick interloop and adhesions between the smal l bowel and the previously placed mesh on the anterior abdominal wall. A few exposed tacks titanium appearing type were found and removed. These were discarded. The remaining tacks were left in place and they were found to be in good position without any significant exposure and they appeared to be covered by a thin alveolar tissue implanted in the previously placed mesh. After the adhesiolysis wa s performed. No bowel injuries or serosal injuries were appreciated. However, I decided to place th e largest mesh we had which is an 8 x [address] mesh with Echo Positioning System aft er the complete adhesiolysis was performed. I swept all fatty tissues off the abdominal wall and att empted to ensure at least 3-5 cm of overlay as this was a largest mesh we had and appeared to have th e ability to cover the defect. I brought the mesh in through the 12 mm trocar and inflated and deplo yed using the Echo Positioning System. I then positioned it superior and inferiorly with a slight of fset to the inferior aspect toward the left lower quadrant favoring the left lower quadrant as there was a hernia to the left of midline in this area. I got approximately 2 cm of overlay in that area a nd the remainder had approximately 5 cm of underlay and 2 cm of underlay at the left lower quadrant. As such, I secured the mesh to the anterior abdominal wall using the AbsorbaTack absorbable fixation system circumferentially and then I removed the balloon deployment system. At this point, I put a d ouble crown in this area as there was not a 5 cm underlay on the left lower quadrant. I decided to p lace an additional transfascial suture x2 using 0 PDS suture using the Lauri-Catrina suture passer through the mesh into the fascia of the abdominal wall, securing it at the skin level using small sta b incisions. This held the mesh in place and reapproximated this tightly with good approximation and apposition of the mesh. I then completed a double crown mesh fixation system to the anterior abdomi nal wall using approximately 90 absorbable fixation tacks. All this was done under desufflation pres sure. I then inflated the abdomen fully and inspected the area. The mesh was found to be in good an atomic position. I then deflated the abdomen to 5 mm and found the mesh to be in good anatomic posit ion. I then reinflated the abdomen to 15 mm. There was no additional hemostatic maneuvers or securi ng required as such I removed the 12 mm trocar and closed using a Lauri-Cartina suture passer and 0 Vicryl in interrupted fashion. Good approximation of the tissues. I then completely desufflated th e abdomen under direct visualization without evidence of complication, removed all trocars. All skin incisions were copiously irrigated and closed with 4-0 Monocryl in a running fashion. Dermabond sergey elisabeth over the top. The patient tolerated the procedure without evidence of complication, transferred to the PACU in good condition. All counts were correct at the end of the case. IVAN/ALBERTO Voice ID: [id number] Report ID: [id number]
[2019-03-16 03:32] VITALS: O2SAT 96
[2019-03-16] MEDS: Ringers Lactate 1,000 ML IV SCH (03:32)
[2019-03-16 05:56] LABS: Magnesium 1.8 mg/dL (1.8-2.4); Phosphorus 3.1 mg/dL (2.5-4.9); Potassium 4.3 mmol/L (3.5-5.1)
[2019-03-16] MEDS: PANTOPRAZOLE 40MG TABLET PO SCH (08:48)
[2019-03-16 15:34] VITALS: BP 99/84; TEMP 98.9
== END 2019-03-16 08:57 | disposition home or self-care (01) ==
LOC: OR 08:35 → 2ND 13:57
PROVIDERS: ADMIT Surgery; ATTEND Surgery
PROC: 0WUF4JZ Supplement Abdominal Wall with Synthetic Substitute, Percutaneous Endoscopic Approach (ICD-10-PCS; principal; 2019-03-15 10:15)
DX: K43.0 Incisional hernia with obstruction, without gangrene (principal); K66.0 Peritoneal adhesions (postprocedural) (postinfection)
CPT/HCPCS: 93005; 80048; 36415; 83735; 84100; 82962 ×2; 49657; J2704; J2710; J2250; J3010 ×2; J1170; J0690 ×2; J7120 ×4; J2405; G0378 ×3

== ENCOUNTER 2019-04-23 09:00 | Inpatient (IN) | payer OTHER ==
[2019-04-23 09:55] LABS: Absolute Lymphocytes (CBC) 2.1 K/uL (0.7-4.9); Basophils % 0.2 % (0-1.3); Hematocrit 37.3 % (39.6-49.0); Lymphocytes % 9.3 % (15.3-44.8); MPV 7.5 fL (7.6-11.3); RBC Red Blood Cell Count 4.36 M/uL (4.33-5.43)
[2019-04-23 10:09] LABS: ALT/SGPT 31 U/L (12-78); AST/SGOT 15 U/L (15-37); Albumin 2.6 g/dL (3.4-5.0); Alkaline Phosphatase 111 U/L (45-117); BUN Blood Urea Nitrogen 15 mg/dL (7-18); Bicarbonate 28 mmol/L (21-32); Bilirubin Direct 0.2 mg/dL (0-0.2); Bilirubin Total 0.6 mg/dL (0.2-1.0); Glucose Level 94 mg/dL (74-106); Lipase 689 U/L (73-393); Potassium 3.3 mmol/L (3.5-5.1); Protein, Total 7.4 g/dL (6.4-8.2); Sodium Level 134 mmol/L (136-145)
[2019-04-23] MEDS ORDERED: MORPHINE 4 MG/ML SYR ONE (10:22)
[2019-04-23] MEDS ORDERED: ONDANSETRON 4 MG/2 ML VIAL ONE (10:22)
[2019-04-23] MEDS ORDERED: NA CHLORIDE 0.9% 1,000 ML ONE (10:22)
[2019-04-23] MEDS ORDERED: CEFOXITIN/SWI 1gm 1 GM/10 ML SYR ONE (10:58)
--- NOTE | 2019-04-23 11:03 | ER ---
Nurse's Notes [facility] Name: Torito Garcia Age: 69 yrs Sex: Male : 1950 Arrival Date: 04/23/2019 Time: 09:04 Bed 15 Private MD: Livan Jewell E Diagnosis: Abdominal and pelvic pain;Acute pancreatitis, unspecified Presentation: 04/23 09:16 Presenting complaint: Patient states: SENT FROM DR OJEDA FOR CT ABDOMEN 2/2 HERNIA bp REPAIR. Transition of care: patient was not received from another setting of care. Onset of symptoms is unknown. Risk Assessment: Do you want to hurt yourself or someone else? Patient reports no desire to harm self or others. Initial Sepsis Screen: Does the patient meet any 2 criteria? No. Patient's initial sepsis screen is negative. Does the patient have a suspected source of infection? No. Patient's initial sepsis screen is negative. Care prior to arrival: None. 09:16 Method Of Arrival: Ambulatory bp 09:16 Acuity: SAIGE 3 bp Triage Assessment: 09:18 General: Appears in no apparent distress. comfortable, obese, Behavior is cooperative, bp appropriate for age, anxious. Pain: Complains of pain in abdomen. EENT: No deficits noted. Neuro: No deficits noted. Cardiovascular: No deficits noted. Respiratory: No deficits noted. GI: Reports nausea, vomiting. : No signs and/or symptoms were reported regarding the genitourinary system. Derm: No deficits noted. Musculoskeletal: No deficits noted. Historical: - Allergies: 09:18 No Known Allergies; bp - Home Meds: 09:18 Atenolol Oral [Active]; lisinopril Oral [Active]; bp - PMHx: 09:18 Hypertension; bp - Immunization history:: Adult Immunizations up to date. - Social history:: Smoking status: Patient/guardian denies using tobacco. - Ebola Screening: : No symptoms or risks identified at this time. Screenin:21 Abuse screen: Denies threats or abuse. Denies injuries from another. Nutritional bp screening: No deficits noted. Tuberculosis screening: No symptoms or risk factors identified. Fall Risk None identified. Assessment: 09:21 General: SEE TRIAGE NOTE. bp 10:46 Reassessment: DR OJEDA AT B/S. OR STAT PENDING. PT NPO. bp 10:47 Reassessment: OR CANCELLED BY SURGERY. bp 12:13 Reassessment: ADMIT IN PROCESS FOR PANCREATITIS. bp 13:42 Reassessment: ADMIT COMPLETE. bp Vital Signs: 09:18 BP 139 / 83; Pulse 66; Resp 17; Temp 95; Pulse Ox 98% ; Weight 98.43 kg; Height 5 ft. 6 bp in. (167.64 cm); 10:47 BP 133 / 87; Pulse 78; Resp 16; Pulse Ox 100% ; bp 12:14 BP 154 / 93; Pulse 68; Resp 14; Pulse Ox 96% ; bp 13:06 BP 139 / 76; Pulse 69; Resp 16; Pulse Ox 97% ; bp 13:42 BP 151 / 89; Pulse 70; Resp 16; Pulse Ox 96% ; bp 09:18 Body Mass Index 35.02 (98.43 kg, 167.64 cm) bp ED Course: 09:04 Patient arrived in ED. am2 09:04 Livan Jewell MD is Private Physician. am2 09:12 Francisco Florentino MD is Attending Physician. kdr 09:16 Luis White, ALIE is Primary Nurse. bp 09:17 Triage completed. bp 09:18 Arm band placed on. bp 09:21 Patient has correct armband on for positive identification. Bed in low position. Call bp light in reach. Side rails up X2. Adult w/ patient. 09:30 Inserted saline lock: 22 gauge in right forearm, using aseptic technique. Blood bp collected. 11:02 Belinda Keene MD is Hospitalizing Provider. kdr 13:39 No provider procedures requiring assistance completed. Patient admitted, IV remains in bp place. Administered Medications: 09:30 Drug: NS 0.9% 500 ml Route: IV; Rate: bolus; Site: right forearm; bp 13:41 Follow up: IV Status: Completed infusion; IV Intake: 500ml bp 10:00 Drug: morphine 4 mg Route: IVP; Site: right forearm; bp 13:41 Follow up: Response: Pain is decreased bp 10:00 Drug: Zofran 4 mg Route: IVP; Site: right forearm; bp 13:41 Follow up: Response: Nausea is decreased bp 10:00 Drug: NS 0.9% 500 ml Route: IV; Rate: bolus; Site: right forearm; bp 13:40 Follow up: IV Status: Completed infusion; IV Intake: 500ml bp 10:50 Drug: cefOXitin 1 grams Route: IVPB; Infused Over: 30 mins; Site: right forearm; bp 13:40 Follow up: IV Status: Completed infusion; IV Intake: 50ml bp Intake: 13:40 IV: 50ml; Total: 50ml. bp 13:40 IV: 500ml; Total: 550ml. bp 13:41 IV: 500ml; Total: 1050ml. bp Outcome: 11:03 Decision to Hospitalize by Provider. kdr 13:39 Admitted to Med/surg accompanied by tech, family with patient, via wheelchair, room bp 215, with chart, Report called to BENJAMIN STRANGE 13:39 Condition: stable 13:39 Instructed on the need for admit. 14:34 Patient left the ED. bp Signatures: Francisco Florentino MD MD [facility] Eliane Platt Brian, RN RN bp
--- NOTE | 2019-04-23 11:04 | EDPHYS ---
Physician Documentation [facility] Name: Torito Garcia Age: 69 yrs Sex: Male : 1950 Arrival Date: 04/23/2019 Time: 09:04 Bed 15 Private MD: Livan Jewell E ED Physician Francisco Florentino HPI: 04/23 17:34 This 69 yrs old Male presents to ER via Ambulatory with complaints of kdr Abdominal Pain, Post Surgical Pain. 17:34 The patient presents with abdominal pain right lower quadrant, in the left lower kdr quadrant. Onset: The symptoms/episode began/occurred gradually, 1 week(s) ago. The symptoms do not radiate. Associated signs and symptoms: Pertinent positives: nausea, Pertinent negatives: anorexia, blood in stools, chest pain, constipation, diarrhea, dysuria, shortness of breath, testicular pain, vomiting. The symptoms are described as achy, crampy, intermittent, vague, waxing/waning. Modifying factors: The symptoms are alleviated by nothing, the symptoms are aggravated by movement, touching the area. Severity of pain: At its worst the pain was mild moderate just prior to arrival, in the emergency department the pain has improved mildly. The patient has not experienced similar symptoms in the past. The patient has been recently seen by a physician: had hernia repair by Dr. Redd not too long ago.. Historical: - Allergies: 09:18 No Known Allergies; bp - Home Meds: 09:18 Atenolol Oral [Active]; lisinopril Oral [Active]; bp - PMHx: 09:18 Hypertension; bp - Immunization history:: Adult Immunizations up to date. - Social history:: Smoking status: Patient/guardian denies using tobacco. - Ebola Screening: : No symptoms or risks identified at this time. ROS: 17:34 Constitutional: Negative for fever, chills, and weight loss, Eyes: Negative for injury, kdr pain, redness, and discharge, ENT: Negative for injury, pain, and discharge, Neck: Negative for injury, pain, and swelling, Cardiovascular: Negative for chest pain, palpitations, and edema, Respiratory: Negative for shortness of breath, cough, wheezing, and pleuritic chest pain, Back: Negative for injury and pain, : Negative for injury, bleeding, discharge, and swelling, MS/Extremity: Negative for injury and deformity, Skin: Negative for injury, rash, and discoloration, Neuro: Negative for headache, weakness, numbness, tingling, and seizure activity. Psych: Negative for depression, anxiety, suicide ideation, homicidal ideation, and hallucinations, Allergy/Immunology: Negative for hives, rash, and allergies, Endocrine: Negative for neck swelling, polydipsia, polyuria, polyphagia, and marked weight changes, Hematologic/Lymphatic: Negative for swollen nodes, abnormal bleeding, and unusual bruising. 17:34 Abdomen/GI: Positive for abdominal pain, nausea, abdominal cramps, Negative for constipation, abdominal distension, black/tarry stool, rectal pain, rectal bleeding. Exam: 17:34 Constitutional: This is a well developed, well nourished patient who is awake, alert, kdr and in no acute distress. Head/Face: Normocephalic, atraumatic. Eyes: Pupils equal round and reactive to light, extra-ocular motions intact. Lids and lashes normal. Conjunctiva and sclera are non-icteric and not injected. Cornea within normal limits. Periorbital areas with no swelling, redness, or edema. Neck: Trachea midline, no thyromegaly or masses palpated, and no cervical lymphadenopathy. Supple, full range of motion without nuchal rigidity, or vertebral point tenderness. No Meningismus. Chest/axilla: Normal chest wall appearance and motion. Nontender with no deformity. No lesions are appreciated. Cardiovascular: Regular rate and rhythm with a normal S1 and S2. No gallops, murmurs, or rubs. Normal PMI, no JVD. No pulse deficits. Respiratory: Lungs have equal breath sounds bilaterally, clear to auscultation and percussion. No rales, rhonchi or wheezes noted. No increased work of breathing, no retractions or nasal flaring. Back: No spinal tenderness. No costovertebral tenderness. Full range of motion. Skin: Warm, dry with normal turgor. Normal color with no rashes, no lesions, and no evidence of cellulitis. MS/ Extremity: Pulses equal, no cyanosis. Neurovascular intact. Full, normal range of motion. Neuro: Awake and alert, GCS 15, oriented to person, place, time, and situation. Cranial nerves II-XII grossly intact. Motor strength 5/5 in all extremities. Sensory grossly intact. Cerebellar exam normal. Normal gait. Psych: Awake, alert, with orientation to person, place and time. Behavior, mood, and affect are within normal limits. 17:34 Abdomen/GI: Inspection: abdomen appears normal, obese Bowel sounds: active, diminished, in all quadrants, Palpation: soft, mild abdominal tenderness, in the right lower quadrant and left lower quadrant. Vital Signs: 09:18 BP 139 / 83; Pulse 66; Resp 17; Temp 95; Pulse Ox 98% ; Weight 98.43 kg; Height 5 ft. 6 bp in. (167.64 cm); 10:47 BP 133 / 87; Pulse 78; Resp 16; Pulse Ox 100% ; bp 12:14 BP 154 / 93; Pulse 68; Resp 14; Pulse Ox 96% ; bp 13:06 BP 139 / 76; Pulse 69; Resp 16; Pulse Ox 97% ; bp 13:42 BP 151 / 89; Pulse 70; Resp 16; Pulse Ox 96% ; bp 09:18 Body Mass Index 35.02 (98.43 kg, 167.64 cm) bp MDM: 11:03 Patient medically screened. kdr 17:34 Data reviewed: vital signs, nurses notes, lab test result(s), radiologic studies. kdr Counseling: I had a detailed discussion with the patient and/or guardian regarding: the historical points, exam findings, and any diagnostic results supporting the discharge/admit diagnosis, lab results, radiology results, the need for further work-up and treatment in the hospital. Physician consultation: Wai Redd MD. 04/23 09:13 Order name: Basic Metabolic Panel [facility] 04/23 09:13 Order name: CBC with Diff [facility] 04/23 09:13 Order name: Creatinine for Radiology [facility] 04/23 09:13 Order name: Hepatic Function [facility] 04/23 09:13 Order name: Lipase kdr 04/23 09:14 Order name: Type And Screen [facility] 04/23 09:13 Order name: CT Abd/Pelvis - IV Contrast Only [facility] 04/23 10:01 Order name: CBC with Automated Diff [facility] 04/23 10:09 Order name: Creatinine (Radiology Only); Complete Time: 10: [facility] 04/23 10:12 Order name: Basic Metabolic Panel; Complete Time: : [facility] 04/23 10:12 Order name: Liver (Hepatic) Function; Complete Time: 10:28 [facility] 04/23 10:12 Order name: Lipase; Complete Time: 10:28 [facility] 04/23 10:33 Order name: Type and Screen; Complete Time: 10:59 [facility] 04/23 13:40 Order name: ABO/RH no charge [facility] 04/23 09:13 Order name: IV Saline Lock; Complete Time: : kdr 04/23 09:13 Order name: Labs collected and sent; Complete Time: : kdr 04/23 11:08 Order name: CT [facility] Administered Medications: 09:30 Drug: NS 0.9% 500 ml Route: IV; Rate: bolus; Site: right forearm; bp 13:41 Follow up: IV Status: Completed infusion; IV Intake: 500ml bp 10:00 Drug: morphine 4 mg Route: IVP; Site: right forearm; bp 13:41 Follow up: Response: Pain is decreased bp 10:00 Drug: Zofran 4 mg Route: IVP; Site: right forearm; bp 13:41 Follow up: Response: Nausea is decreased bp 10:00 Drug: NS 0.9% 500 ml Route: IV; Rate: bolus; Site: right forearm; bp 13:40 Follow up: IV Status: Completed infusion; IV Intake: 500ml bp 10:50 Drug: cefOXitin 1 grams Route: IVPB; Infused Over: 30 mins; Site: right forearm; bp 13:40 Follow up: IV Status: Completed infusion; IV Intake: 50ml bp Disposition: 04/23/19 11:03 Hospitalization ordered by Belinda Keene for Observation. Preliminary diagnosis are Abdominal and pelvic pain, Acute pancreatitis, unspecified. - Bed requested for Telemetry/MedSurg (observation). - Status is Observation. bp - Condition is Fair. - Problem is new. - Symptoms have improved. UTI on Admission? No Signatures: Dispatcher [employer] [facility] Francisco Florentino MD MD kdr Peltier, Brian, RN RN Josy Sebastian Corrections: (The following items were deleted from the chart) 11:59 11:03 Hospitalization Ordered by Belinda Keene MD for Observation. Preliminary diagnosis eb is Abdominal and pelvic pain; Acute pancreatitis, unspecified. Bed requested for Telemetry/MedSurg (observation). Status is Observation. Condition is Fair. Problem is new. Symptoms have improved. UTI on Admission? No. kdr 13:32 11:59 04/23/2019 11:03 Hospitalization Ordered by Belinda Keene MD for Observation. eb Preliminary diagnosis is Abdominal and pelvic pain; Acute pancreatitis, unspecified. Bed requested for Telemetry/MedSurg (observation). Status is Observation. Condition is Fair. Problem is new. Symptoms have improved. UTI on Admission? No. eb 14:34 13:32 04/23/2019 11:03 Hospitalization Ordered by Belinda Keene MD for Observation. bp Preliminary diagnosis is Abdominal and pelvic pain; Acute pancreatitis, unspecified. Bed requested for Telemetry/MedSurg (observation). Status is Observation. Condition is Fair. Problem is new. Symptoms have improved. UTI on Admission? No. eb
--- NOTE | 2019-04-23 11:05 | RAD REPORT ---
EXAM DESCRIPTION: CT - Abdomen Pelvis W Contrast - 04/23/2019 10:33 am CLINICAL HISTORY: Abdominal pain COMPARISON: January 2019 TECHNIQUE: Computed axial tomography of the abdomen pelvis was obtained. 100 cc Isovue-300 was admin istered intravenously. Oral contrast was not requested which limits evaluation of bowel. All CT scans are performed using dose optimization technique as appropriate and may include automated exposure control or mA/KV adjustment according to patient size. FINDINGS: The liver, spleen, adrenal and kidneys appear unremarkable. The pancreatic head and neck are inhomogeneous. Moderate stranding is present within the peripancreat ic fat. A pseudocyst is not seen. Borderline dilated loop of jejunum may indicate a mild ileus There is no evidence of diverticulitis. Normal appendix Postsurgical changes of a ventral hernia repair. A 16 x 4 x 15 centimeter (cc by AP by trans) fluid c ollection is present within the anterior abdomen abutting the abdominal wall. It extends from the mid abdomen to the upper pelvis. 3 components of the fluid collection protrude anteriorly through a her antonio. The largest neck of the hernia measures 4.6 centimeters to the right of midline at the periumbil ical region. Trace amount of free fluid Mild gallbladder distention IMPRESSION: Moderate pancreatitis 16 x 4 x 15 centimeter fluid collection within the anterior abdomen and upper pelvis abutting the abd ominal wall probably either an old hematoma or seroma Mild gallbladder distention
[2019-04-23] MEDS ORDERED: ACETAMINOPHEN 650MG/RECT SUPP PR PRN (13:58)
[2019-04-23] MEDS ORDERED: MORPHINE 2 MG/ML SYR IV PRN (13:58)
[2019-04-23] MEDS ORDERED: ONDANSETRON 4 MG/2 ML VIAL IV PRN (13:58)
[2019-04-23] MEDS ORDERED: D5 0.45 NS 1,000 ML IV SCH (14:00)
[2019-04-23] MEDS: KCL 20 MEQ/100 mL IVPB 20 MEQ/100 ML BAG IV SCH ×2 (14:51→18:25)
[2019-04-23 15:25] LABS: Blood Morphology Comment NOT SEEN (NOT SEEN); Platelet Estimate ADEQ
[2019-04-23 15:59] VITALS: BMI 35.0
[2019-04-23] MEDS: NA CHLORIDE 0.9% 1,000 ML IV SCH (16:06)
[2019-04-23] MEDS ORDERED: NA CHLORIDE 0.9% 250 ML ONE (16:12)
[2019-04-23] MEDS: PIPER/TAZO/NS 3.375gm 3.375 GM/100 ML BAG IVPB SCH (17:45)
[2019-04-23 18:42] LABS: Urine Appearance CLEAR; Urine Bilirubin NEGATIVE (NEG); Urine Blood 3+ (NEG); Urine Color YELLOW; Urine Glucose NEGATIVE (NEG); Urine Protein 2+ (NEG); Urine Specific Gravity >=1.030 (1.005-1.030); Urine pH 6.5 (5.0-7.0)
[2019-04-23 19:35] LABS: Urine Bacteria <20 /HPF (NONE SEEN); Urine Culture Reflex Order NOT NEEDED; Urine RBC 20-50 /HPF (NONE SEEN)
[2019-04-23] MEDS: FENTANYL CITR 100 MCG/2 ML IV PRN (19:43)
--- NOTE | 2019-04-23 21:33 | HP ---
Date of Admission: 04/23/2019 Chief Complaint: Abdominal pain, nausea, vomiting, decreased p.o. intake. Primary Care Physician: Dr. Jewell. Consultants: Dr. Dhaliwal with General Surgery. Code Status: Full. History Of Present Illness: Patient is a 69-year-old male with past medical history of multiple hernia repairs, was seen at Dr. Redd's clinic after postop eval. Patient had hernia surgery 1 month ago. Patient was found to have seroma and pancreatitis. Patient was therefore sent to the ER for further evaluation. Patient's workup revealed white count of 22,000. Sodium 134, potassium 3.3. Patient otherwise reported generalized abdominal pain, which was constant moderate progressively worsening. The patient unable to tolerate p.o. intake. Denies any fevers. Did have some chills. When seen in the ER, he was awake, alert, and oriented x3, in some mild distress, improved with pain medication. Past Medical History: Hypertension. Past Surgical History: Hernia repair, small bowel resections. Allergies: NO KNOWN DRUG ALLERGIES. Social History: Patient denies any tobacco use, alcohol use, or illicit drug use. Patient is . Family History: Father of heart attack in his 70s. Grandfather of a brain tumor. Review of Systems: Ten-point system reviewed, negative except as per HPI. Physical Examination: Vital Signs: Blood pressure 139/83, pulse 66, respirations 17, temperature 95, O2 98% on room air. General: Awake, alert, and oriented x3, ill-appearing elderly male in some mild distress. HEENT: Normocephalic, atraumatic. PERRLA. EOMI. Dry mucous membranes. Oropharynx is clear. Normal dentition. Conjunctivae anicteric. Neck: Supple. No JVD. Trachea midline. CV: S1, S2. Regular rate and rhythm. Peripheral pulses present. Respiratory: Moving air well bilaterally. No wheezing or stridor. No use of accessory muscles. Gastrointestinal: Abdomen is soft. Mild tenderness to palpation in the epigastric region. No rebound or guarding. Positive bowel sounds. Extremities: No clubbing, cyanosis, or edema. Neuro: Cranial nerves 2 through 12 intact grossly. No focal neurological deficit. Speech is normal. Laboratory Data: Sodium 134, potassium 3.3, chloride 99, CO2 28, BUN 15, creatinine 0.77, glucose 94, calcium 8.2, albumin 2.6, lipase 689. WBC 22.1, H and H 12.9 and 37.3, platelets 223, neutrophils 85%. CT scan of the abdomen shows moderate pancreatitis 16 x 4 x 15 cm fluid collection within the anterior abdomen and upper pelvis abutting the abdominal wall, probably either an old hematoma or seroma. Mild gallbladder distention. Assessment And Plan: 1. A 69-year-old male with acute pancreatitis without abscess or necrosis may be due to recently passed gallstones, unclear etiology. We will keep n.p.o. IV analgesia surgery consultation. 2. Seroma, likely secondary post surgery, injury to anterior abdomen. Dr. Dhaliwal is on board. No surgical intervention at this time. We will continue to monitor. 3. Leukocytosis with neutrophilia, likely related to pancreatitis. We will check UA as well as chest x-ray to rule out other sources. We will start on Zosyn. Patient is postop 1 month. We will obtain blood cultures. 4. Hypokalemia. We will replace and monitor. Plan: Admit patient to Med-Surg, place as inpatient. Length of stay greater than 2 midnights. REENA Voice ID: [id number]
[2019-04-24] MEDS: NA CHLORIDE 0.9% 1,000 ML IV SCH ×4 (00:54→17:09)
[2019-04-24] MEDS: PIPER/TAZO/NS 3.375gm 3.375 GM/100 ML BAG IVPB SCH ×3 (00:54→17:09)
[2019-04-24] MEDS: FENTANYL CITR 100 MCG/2 ML IV PRN (01:02)
[2019-04-24 05:22] LABS: Absolute Lymphocytes (CBC) 2.1 K/uL (0.7-4.9); Basophils % 0.1 % (0-1.3); Hematocrit 34.8 % (39.6-49.0); Lymphocytes % 11.4 % (15.3-44.8); MPV 7.6 fL (7.6-11.3); RBC Red Blood Cell Count 4.03 M/uL (4.33-5.43)
[2019-04-24 05:36] LABS: ALT/SGPT 20 U/L (12-78); AST/SGOT 10 U/L (15-37); Albumin 2.1 g/dL (3.4-5.0); Alkaline Phosphatase 95 U/L (45-117); BUN Blood Urea Nitrogen 14 mg/dL (7-18); Bicarbonate 25 mmol/L (21-32); Bilirubin Total 0.6 mg/dL (0.2-1.0); Glucose Level 85 mg/dL (74-106); Lipase 402 U/L (73-393); Potassium 3.4 mmol/L (3.5-5.1); Protein, Total 6.5 g/dL (6.4-8.2); Sodium Level 139 mmol/L (136-145)
[2019-04-24] MEDS: KCL 20 MEQ/100 mL IVPB 20 MEQ/100 ML BAG IV SCH ×2 (06:35→09:44)
--- NOTE | 2019-04-24 07:29 | RAD REPORT ---
EXAM DESCRIPTION: [place] Single View04/24/2019 6:20 am CLINICAL HISTORY: cough COMPARISON: 2017 FINDINGS: The lungs appear clear of acute infiltrate. The heart is normal size IMPRESSION: No acute abnormalities displayed
--- NOTE | 2019-04-24 10:48 | CON ---
Date of Consultation: 04/23/2019 Reason For Consultation: Abdominal pain. History Of Present Illness: Patient is a 69-year-old gentleman, who underwent a laparoscopic ventral hernia repair by Dr. eRdd about a month ago and he saw him yesterday in his office. Patient was not able to eat, had nausea and vomiting starting on Friday. He had epigastric pain going to the g[place]. No diarrhea or constipation. No blood in his stool. No dysuria or hematuria. No sore throat, r unny nose, cough, headaches, or dizziness. No chest pain. Patient was admitted and worked up and wa s found to have pancreatitis and seroma and I was consulted as Dr. Redd is going out of town. Amara cantu is awake, alert today. Has no pain today. No nausea or vomiting. He is feeling well, passing gas. Review of Systems: Otherwise unremarkable. Past Medical History: Hypertension. Past Surgical History: Small bowel resection, multiple hernia repairs, most recently about a month a go. Allergies: NONE. Social History: Patient does not smoke or drink. Family History: Significant for heart attack and brain tumor. Physical Examination: Vital Signs: Stable currently. His temperature is 99.2. General: He is awake, alert, and oriented x3. Head and Neck: Cranial nerves 2 through 12 are grossly within normal limits. No neck masses. No JV D. Throat clear. Neck is supple. Chest: Clear. Heart: S1 and S2. Abdomen: Soft, nondistended, nontender. Positive bowel sounds. There is no incarcerated hernia not ed. When the patient does cough, there is a bulge present on the right side of midline, is easily re ducible and I believe is covered by the mesh. Extremities: Adequately perfused. Nontender. Neuro: Nonfocal. Laboratory Data: White count on admission was 22.1, today is 17.9, does have a left shift. Chemistr y reviewed. His lipase yesterday was 689, today is 402. Electrolytes are reviewed. Potassium is sl ightly low, being replaced. CT of the abdomen and pelvis shows moderate pancreatitis, 16 x 4 x 15 cm fluid collection within the anterior abdomen and upper pelvis abutting the abdominal wall, probably either old hematoma or seroma and mild gallbladder distention. Assessment: A 69-year-old gentleman with pancreatitis with hematoma or seroma following a ventral he rnia repair. The etiology of the pancreatitis is unclear. Patient does not drink alcohol. Could patel ve gallstones that are not seen on the CAT scan and that needs to be worked up. Dr. Redd said he would workup with the patient's etiology once he gets back. He will be back in a couple of days. At this time, IV fluids, antibiotics. Serial abdominal exam as clinically looks very well, he can have some clear liquids today and if tolerated and advance and I will follow the patient while in the [facility] until Dr. Redd gets back. /MODL Voice ID: [id number] Report ID: [id number]
[2019-04-24] MEDS ORDERED: PNEUMOCOCCAL VACCINE 0.5 ML IMVAC ONE (13:00)
[2019-04-24] MEDS: ENOXAPARIN 40 MG/0.4 ML SQ SCH (17:13)
--- NOTE | 2019-04-24 18:25 | PN ---
Date of Progress Note: 04/24/2019 Subjective: Patient seen and examined. Chart reviewed and case discussed with RN and Dr. Dhaliwal. Michael faust states he feels significantly better. No significant abdominal pain. No nausea or vomiting. Medications: List reviewed. Physical Examination: Vital Signs: Temperature 99.6, heart rate 86, blood pressure 152/77, respirations 20, O2 96% on room air. General: Awake, alert, oriented x3, not in any acute distress. Elderly male, obese. CV: S1, S2. Regular rate and rhythm. Peripheral pulses present. Respiratory: Moving air well bilaterally. No wheezing or stridor. No use of accessory muscles. Gastrointestinal: Abdomen is soft, nontender, nondistended. Positive bowel sounds. No guarding or rigidity. Slight bulge on the right side, easily reducible. Extremities: No clubbing, cyanosis, or edema. No calf tenderness. Neuro: Cranial nerves 2 through 12 intact grossly. No focal neurological deficit. Skin: Healed incision scar midline down the abdomen. Laboratory Data: Sodium 139, potassium 3.4, chloride 107, CO2 of 25, BUN 14, creatinine 0.83, glucos e 85, calcium 7.7, total bilirubin 0.6, AST 10, ALT 20, albumin 2.1, lipase 402. WBC 17.9, H and H 1 1.4 and 34.8, platelets 188, neutrophils 80%. Blood cultures are pending. Chest x-ray, no acute abn ormalities, personally reviewed. Assessment: A 69-year-old male with: 1.Acute pancreatitis without abscess or necrosis, unclear etiology, may be due to recently passed ga llstones. Liver enzymes and total bilirubin are normal. Appreciate Dr. Dhaliwal's input. Lipase is tr ending down. We will adjust IV fluid rate and start on clear liquids. No nausea or vomiting. [place] nue with antiemetics as needed. 2.Seroma, likely secondary to post surgery. Patient had a recent ventral hernia repair. No surgica l intervention recommended by surgery at this time. We will continue to monitor. 3.Hypokalemia. Replace and monitor. 4.Obesity. BMI 35. 5.Severe protein-calorie malnutrition. Albumin is 2.1. We will continue with protein supplementati on. 6.DVT prophylaxis with Lovenox. Plan: Likely discharge in the next 24-48 hours depending on clinical response, if able to tolerate a soft diet and improved clinically. We will continue with Zosyn. The patient's white blood cell cou nt still elevated at 17.9 with neutrophilia, but trending down. No fever. No signs of sepsis SA/MODL Voice ID: [id number] Report ID: [id number]
[2019-04-24] MEDS ORDERED: POTASSIUM 25 MEQ EFFERV TAB PO ONE (22:00)
[2019-04-25] MEDS: NA CHLORIDE 0.9% 1,000 ML IV SCH ×4 (00:23→21:18)
[2019-04-25] MEDS: PIPER/TAZO/NS 3.375gm 3.375 GM/100 ML BAG IVPB SCH ×3 (00:23→16:36)
[2019-04-25 06:30] LABS: Magnesium 2.2 mg/dL (1.8-2.4); Potassium 3.7 mmol/L (3.5-5.1)
[2019-04-25 08:45] LABS: Absolute Lymphocytes (CBC) 1.8 K/uL (0.7-4.9); Basophils % 0.1 % (0-1.3); Hematocrit 34.9 % (39.6-49.0); Lymphocytes % 11.7 % (15.3-44.8); MPV 7.3 fL (7.6-11.3); RBC Red Blood Cell Count 4.02 M/uL (4.33-5.43)
[2019-04-25] MEDS ORDERED: POTASSIUM 25 MEQ EFFERV TAB PO ONE (09:00)
[2019-04-25] MEDS: LACTOBACILLUS/ACIDOPHILUS TAB PO SCH ×2 (10:09→21:18)
--- NOTE | 2019-04-25 14:47 | PN ---
Date of Progress Note: 04/25/2019 Subjective: Patient is awake, alert. No complaints. Objective: Vital Signs: Stable, afebrile. Abdomen: Benign. Laboratory Data: His lipase is still elevated, went up slightly, is over 400. Assessment: Pancreatitis, abdominal wall seroma. Recommendations: We will go ahead and get an ultrasound of the gallbladder to make sure patient does have gallstones while he is in the hospital. I would recommend keeping him on clear liquids another day, just waiting for the lipase to go down a little bit more before advancing his diet. Patient is clinically doing well. /MODL Voice ID: [id number] Report ID: [id number]
[2019-04-25 15:20] LABS: C.diff Antigen/Toxin Ag neg : Tox neg (NEG : NEG)
--- NOTE | 2019-04-25 15:21 | PN ---
Date of Progress Note: 04/25/2019 Subjective: Patient is seen and examined. Chart was reviewed and case was discussed with RN. Patie nt feels better. Denies any abdominal pain; however, has had about 5 episodes of loose, watery diarr hea. Denies any nausea or vomiting. Medications: List was reviewed. Physical Examination: Vital Signs: Temperature 98.2, heart rate 82, blood pressure 136/79, respirations 18, O2 95% on room air. General: Awake, alert, oriented x3, not in any acute distress. Mildly ill-appearing, obese female. CV: S1, S2. Regular rate and rhythm. Peripheral pulses present. Respiratory: Moving air well bilaterally. No wheezing or stridor. No use of accessory muscles. Gastrointestinal: Abdomen is mildly distended. Minimal tenderness to palpation on the right side. No rebound or guarding. Positive bowel sounds. Extremities: No clubbing, cyanosis, or edema. Neurologic: Nonfocal. Laboratory Data: White count 15.4, H and H 11.5 and 34.9, platelets 235, neutrophils 78.8%. Potassi um 3.7. Magnesium 2.2. Lipase is 423. C difficile assay is pending. Blood cultures: No growth to date. Assessment: A 69-year-old. 1.Acute pancreatitis without abscess or necrosis, unclear etiology, may be due to recently passed ga llstone, significantly improved clinically. Lipase, however, went up today. We will repeat level in a.m. Continue with IV fluids. No further nausea or vomiting. 2.Diarrhea, likely secondary to antibiotics. However, need to rule out C difficile. We will check C difficile assay. 3.Seroma, likely secondary to recent surgery. Patient had ventral hernia repair. At this time, no surgical intervention has been recommended. We will continue to monitor. 4.Hypokalemia. We will replace, now up to 3.7. We will continue to monitor. 5.Obesity. BMI 35. 6.Severe protein-calorie malnutrition. Albumin is 2.1. Plan: Continue clear liquids for now. Follow up on C difficile results. Add probiotics. We will a djust IV fluids. Repeat lipase level in a.m. SA/MODL Voice ID: [id number] Report ID: [id number]
[2019-04-25] MEDS: ENOXAPARIN 40 MG/0.4 ML SQ SCH (16:37)
[2019-04-26] MEDS: PIPER/TAZO/NS 3.375gm 3.375 GM/100 ML BAG IVPB SCH ×3 (00:22→17:00)
[2019-04-26] MEDS: NA CHLORIDE 0.9% 1,000 ML IV SCH ×2 (05:45→17:08)
[2019-04-26 06:35] LABS: Absolute Lymphocytes (CBC) 2.2 K/uL (0.7-4.9); Basophils % 0.3 % (0-1.3); Hematocrit 32.2 % (39.6-49.0); Lymphocytes % 15.6 % (15.3-44.8); MPV 7.4 fL (7.6-11.3); RBC Red Blood Cell Count 3.72 M/uL (4.33-5.43)
[2019-04-26 06:45] LABS: BUN Blood Urea Nitrogen 6 mg/dL (7-18); Bicarbonate 23 mmol/L (21-32); Glucose Level 84 mg/dL (74-106); Lipase 234 U/L (73-393); Potassium 3.8 mmol/L (3.5-5.1); Sodium Level 138 mmol/L (136-145)
--- NOTE | 2019-04-26 07:18 | RAD REPORT ---
EXAM DESCRIPTION: US - Abdomen Exam Complete - 04/25/2019 9:36 pm CLINICAL HISTORY: r/o gallstones Abdominal pain COMPARISON: Abdomen Pelvis W Contrast dated 04/23/2019 FINDINGS: Gallbladder size is normal. A large amount of sludge is present filling the majority of th e gallbladder lumen. Punctate hyperechoic foci could be tumefactive sludge or punctate gallstones. No wall thickening or pericholecystic fluid. Common bile duct is normal with no common duct stone ident ified. The liver and spleen show no suspicious findings. Doppler evaluation shows normal blood flow i n the portal vein. The pancreas is obscured. April 23 CT study showed moderate pancreatitis. No hydronephrosis or suspicious mass in either kidney. Aorta and IVC are obscured. No bulky lymphadenopathy. Anterior abdominal wall/peritoneal fluid collec tion near the hernia mesh was not evaluated on this study. IMPRESSION: Large amount of sludge is present filling the majority of the gallbladder lumen. This co uld obscure punctate gallstones. No wall thickening, pericholecystic fluid or biliary tree abnormality. Pancreas is obscured by bowel. Pancreatitis seen on the April 23 imaging. Aorta and IVC were obscu red but unremarkable on the CT study.
[2019-04-26] MEDS ORDERED: POTASSIUM 25 MEQ EFFERV TAB PO ONE (09:00)
--- NOTE | 2019-04-26 09:08 | P.PN ---
Subjective Date of Service: 04/26/19 Subjective: Improving (Patient is pain free, but does continue to have loose BM , ambulatory in halls, no nausea or emesis, tolerating clears well) Physical Examination - Vital Signs Temperature: 98.4 F Blood Pressure: 145/89 Pulse: 82 Respirations: 16 Pulse Ox (%): 96 - Physical Exam General: Alert, In no apparent distress, Cooperative Gastrointestinal: Soft and benign, Non-distended, No ascites, No tenderness, No masses, No rebound, No guarding, Other (murphys negative) Assessment And Plan - Current Problems (Diagnosis) (1) Pancreatitis Current Visit: Yes Status: Acute - Plan 69 year old man s/p ventral hernia repair about a month ago who presented with pancreatitis - serial exams - advance to full liquid diet - I am unsure of etiology of pancreatitis, biliary is a possibility, but not definitive, as such given the recent mesh hernia repair, I do not recommend cholecystectomy at this time - will refer to GI as outpatient - JOY campbell as patient is ambulatory - recheck labs in AM - send stool culture and o+p
[2019-04-26] MEDS: LACTOBACILLUS/ACIDOPHILUS TAB PO SCH ×2 (09:10→22:14)
[2019-04-26 09:22] VITALS: O2SAT 96
--- NOTE | 2019-04-26 15:58 | PN ---
Date of Progress Note: 04/26/2019 Subjective: Patient is seen and examined. Chart reviewed and case discussed with RN and Dr. Redd. Patient is doing well. No significant complaints of abdominal pain. No nausea or vomiting. States that his diarrhea is improving. Medications: List reviewed. Physical Examination: Vital Signs: Temperature 98.6, heart rate 76, blood pressure 147/79, respirations 15, O2 95% on room air. General: Awake, alert, oriented x3, elderly male in some mild distress. Obese. BMI 35. CV: S1, S2. Regular rate and rhythm. Peripheral pulses present. Respiratory: Moving air well bilaterally. No wheezing or stridor. Gastrointestinal: Abdomen is soft. Mild distention. No tenderness. Positive bowel sounds. Extremities: No clubbing, cyanosis, or edema. Neurologic: Nonfocal. Laboratory Data: Sodium 138, potassium 3.8, chloride 107, CO2 of 23, BUN 6, creatinine 0.73, glucose 84, calcium 7.8, lipase 234. WBC 14, H and H 10.8 and 32.2, platelets 211, neutrophils 72%, no bands. Cultures are pending. Blood cultures are pending. Ova and parasites pending. C diff assay is negative. Assessment And Plan: A 69-year-old male with: 1. Acute pancreatitis, unclear etiology. No abscess or necrosis. Lipase is normalized, improving. We will advance diet to full liquids and then GI soft. 2. Diarrhea. Clostridium difficile is ruled out. Patient does use well water at home. We will obtain ova and parasites and stool culture, outbreak of shigella locally as well. Appreciate Dr. Redd's input. 3. Seroma, likely due to recent surgery, status post ventral hernia repair. No surgical intervention at this time, stable. 4. Hypokalemia, replaced. We will continue to monitor. 5. Obesity. BMI 35. 6. Severe protein-calorie malnutrition. We will continue with protein supplements once tolerating p.o. diet. Plan: Continue IV antibiotics. Follow up on stool studies, likely discharge in a.m. once cleared by Surgery. SA/MODL Voice ID: [id number] Report ID: [id number] [facility]
[2019-04-27] MEDS: NA CHLORIDE 0.9% 1,000 ML IV SCH (02:54)
[2019-04-27 05:44] LABS: Absolute Lymphocytes (CBC) 1.8 K/uL (0.7-4.9); Basophils % 0.3 % (0-1.3); Lymphocytes % 13.4 % (15.3-44.8); MPV 7.2 fL (7.6-11.3); RBC Red Blood Cell Count 3.72 M/uL (4.33-5.43)
[2019-04-27 06:00] LABS: ALT/SGPT 14 U/L (12-78); AST/SGOT 14 U/L (15-37); Alkaline Phosphatase 96 U/L (45-117); BUN Blood Urea Nitrogen 4 mg/dL (7-18); Bicarbonate 27 mmol/L (21-32); Bilirubin Total 0.3 mg/dL (0.2-1.0); Glucose Level 106 mg/dL (74-106); Magnesium 2.1 mg/dL (1.8-2.4); Potassium 3.8 mmol/L (3.5-5.1); Sodium Level 140 mmol/L (136-145)
--- NOTE | 2019-04-27 07:50 | P.PN ---
Subjective Date of Service: 04/27/19 Subjective: Improving (Patient having normal BMs, tolerating diet well, no pain , no other complaints) Physical Examination - Vital Signs Temperature: 98.7 F Blood Pressure: 161/68 Pulse: 83 Respirations: 18 Pulse Ox (%): 96 - Physical Exam General: Alert, In no apparent distress, Cooperative Gastrointestinal: Soft and benign, No ascites, No tenderness, No masses, No rebound, No guarding Assessment And Plan - Current Problems (Diagnosis) (1) Pancreatitis Current Visit: Yes Status: Acute - Plan 69 year old man s/p ventral hernia repair about a month ago who presented with pancreatitis - serial exams - advance to soft, LOW FAT - I am unsure of etiology of pancreatitis, biliary is a possibility, but not definitive, as such given the recent mesh hernia repair, I do not recommend cholecystectomy at this time - will refer to GI as outpatient - send stool culture and o+p
[2019-04-27] MEDS: LACTOBACILLUS/ACIDOPHILUS TAB PO SCH (08:42)
[2019-04-27] MEDS: PIPER/TAZO/NS 3.375gm 3.375 GM/100 ML BAG IVPB SCH ×2 (08:43)
[2019-04-27] MEDS ORDERED: POTASSIUM CL SA 10 MEQ TAB PO ONE (09:00)
[2019-04-27] MEDS ORDERED: NA CHLORIDE 0.9% 1,000 ML IV SCH (10:00)
--- NOTE | 2019-04-27 11:05 | P.DS ---
Admission Date: 04/23/19 Discharge Date: 04/27/19 Disposition: ROUTINE DISCHARGE Discharge Condition: GOOD - Problems (1) Pancreatitis Current Visit: Yes Status: Acute (2) Hypertension Current Visit: No Status: Chronic Qualifiers: Hypertension type: essential hypertension Qualified Code(s): I10 - Essential (primary) hypertension (3) Ventral hernia Current Visit: No Status: Chronic Qualifiers: Obstruction and gangrene presence: without obstruction or gangrene Qualified Code(s): K43.9 - Ventral hernia without obstruction or gangrene Brief History of Present Illness: 69-year-old gentleman with a history of multiple abdominal hernias had multiple hernia surgeries done about 1 month ago. Patient was seen in follow up for post of evaluation in the Dr. Redd's office. He was complaining of abdominal pain. He was then referred to the ED to be evaluated. His lipase level checked in the ED was elevated. CT abdomen and pelvis demonstrated stranding in the pancreas suggestive of acute pancreatitis. Patient was admitted for further management. Hospital Course: The patient was placed on supportive measures with IV hydration, IV opioids for pain control and IV antiemetics as needed. [place] [id number]. Patient also placed on IV Zosyn for suspected infection. He was seen and evaluated by Dr. Redd, no further surgery indicated. Patient symptoms improved. Lipase level normalized with supportive measures. Abdominal ultrasound demonstrated gallbladder slurred, CBD not dilated and no evidence of CBD stone. Patient had bouts of diarrhea. Stool for C. diff was negative. Stool for ova and parasites and culture has been obtained and results are pending. He is seen today by Dr. Redd and deemed clinically stable for discharge. He will follow with Dr. Redd within 2 weeks. He prescribed Flagyl and Cipro to continue treatment for possible enteritis. Vital Signs/Physical Exam: Temp Pulse Resp BP Pulse Ox 98.2 F 79 15 160/80 H 98 04/27/19 08:00 04/27/19 08:00 04/27/19 08:00 04/27/19 08:00 04/27/19 08:00 General: Alert, In no apparent distress, Oriented x3 Neck: Supple Respiratory: Clear to auscultation bilaterally, Normal air movement Cardiovascular: No edema, Regular rate/rhythm, Normal S1 S2 Gastrointestinal: Normal bowel sounds, Soft and benign, Non-distended, No tenderness Musculoskeletal: No swelling Integumentary: No rashes Neurological: Normal gait, Normal speech, Normal strength at 5/5 x4 extr Laboratory Data at Discharge: WBC 13.7 K/uL (4.3-10.9) H 04/27/19 05:09 Hgb 10.8 g/dL (13.6-17.9) L 04/27/19 05:09 Hct 32.0 % (39.6-49.0) L 04/27/19 05:09 Plt Count 231 K/uL (152-406) 04/27/19 05:09 Sodium 140 mmol/L (136-145) 04/27/19 05:09 Potassium 3.8 mmol/L (3.5-5.1) 04/27/19 05:09 BUN 4 mg/dL (7-18) L 04/27/19 05:09 Creatinine 0.71 mg/dL (0.55-1.3) 04/27/19 05:09 Glucose 106 mg/dL (74-106) 04/27/19 05:09 Phosphorus 3.0 mg/dL (2.5-4.9) 04/27/19 05:09 Magnesium 2.1 mg/dL (1.8-2.4) 04/27/19 05:09 Total Bilirubin 0.3 mg/dL (0.2-1.0) 04/27/19 05:09 AST 14 U/L (15-37) L 04/27/19 05:09 ALT 14 U/L (12-78) 04/27/19 05:09 Alkaline Phosphatase 96 U/L (45-117) 04/27/19 05:09 Lipase 234 U/L (73-393) 04/26/19 05:20 Home Medications: Atenolol [Tenormin*] 1 tab PO DAILY 02/01/19 Lisinopril 1 tab PO DAILY 02/01/19 Ciprofloxacin HCl [Cipro 500 MG Tablet] 500 mg PO BID 5 Days #10 tab 04/27/19 metroNIDAZOLE [Flagyl] 500 mg PO Q8H 5 Days #15 tablet 04/27/19 New Medications: Ciprofloxacin HCl [Cipro 500 MG Tablet] 500 mg PO BID 5 Days #10 tab metroNIDAZOLE [Flagyl] 500 mg PO Q8H 5 Days #15 tablet Diet: [place] Activity: Ad helga Followup: Wai Redd MD [ACTIVE - CAN ADMIT] - 1-2 Weeks (Please call to make an appointment. )
[2019-04-27 13:25] VITALS: BP 170/82; TEMP 98.8
== END 2019-04-27 12:28 | disposition home or self-care (01) | DRG 438 ==
LOC: ER 09:00 → ERHOLD 13:15 → 2ND 13:46
PROVIDERS: ADMIT Family Medicine; ATTEND Family Medicine
DX: K85.90 Acute pancreatitis without necrosis or infection, unspecified (principal); E43 Unspecified severe protein-calorie malnutrition; K91.873 Postprocedural seroma of a digestive system organ or structure following other procedure; I10 Essential (primary) hypertension; K43.9 Ventral hernia without obstruction or gangrene; R19.7 Diarrhea, unspecified; E87.6 Hypokalemia; E66.9 Obesity, unspecified; Z68.35 Body mass index [BMI] 35.0-35.9, adult
CPT/HCPCS: 36415; 71045; 74177; 76700; 80048; 80053; 80076; 81001; 83690; 83735; 84100; 84132; 85025; 86850; 86900; 86901; 87040; 87045; 87046; 87177; 87209; 87324; 87449; 90471; 90670; 94760; 96361; 96365; 96366; 96375; 99285; J1650; J2270; J2405; J2543; J3010; J7030; J7799; Q9967

== ENCOUNTER 2019-07-30 08:45 | Day surgery (SDC) | payer OTHER ==
[2019-07-30] MEDS ORDERED: Ringers Lactate 1,000 ML IV ONE (09:10)
[2019-07-30] MEDS ORDERED: propofoL 200 MG/20 ML VIAL IV ONE ×2 (10:10)
[2019-07-30] MEDS ORDERED: LIDOCAINE 1% MPF 5 ML VIAL ONE (10:10)
[2019-07-30] MEDS ORDERED: EPHEDRINE SULF 50 MG/ML VIAL ONE (10:38)
--- NOTE | 2019-07-30 10:41 | ENDO RPT ---
[address], [address] COLONOSCOPY PROCEDURE REPORT EXAM DATE: 07/30/2019 PATIENT NAME: Torito Garcia MR #: [id number] BIRTHDATE: 1950 ATTENDING: Wai Redd DR STATUS: outpatient PREPLEATER: Adali Ornelas RN and Rosario Lewis RN INDICATIONS: The patient is a 69 yr old Male here for a colonoscopy due to history of polyps PROCEDURE PERFORMED: Colonoscopy with biopsy MEDICATIONS: Per Anesthesia. ESTIMATED BLOOD LOSS: None CONSENT: The patient understands the risks and benefits of the procedure and understands that these risks include, but are not limited to: sedation, allergic reaction, infection, perforation and/or bleeding. Alternative means of evaluation and treatment include, among others: physical exam, x-rays, and/or surgical intervention. The patient elects to proceed with this endoscopic procedure. DESCRIPTION OF PROCEDURE: During intra-op preparation period all mechanical medical equipment was checked for proper function. Hand hygiene and appropriate measures for infection prevention was taken. Procedure, possible complications, alternatives including, but not limited to possibility of bleeding, perforation, tear, infection, sepsis, need for surgery, need for blood transfusion, were explained to the patient. After the risks, benefits and alternatives of the procedure were thoroughly explained, Informed consent was verified, confirmed and timeout was successfully executed by the treatment team. The patient was placed in the left lateral position. A digital rectal exam was performed and revealed internal hemorrhoids. After appropriate level of anesthesia, the scope was passed. The EC-[id number] ([id number]) endoscope was introduced through the anus and advanced to the cecum, which was identified by both the appendix and ileocecal valve. The quality of the prep was fair. The instrument was then slowly withdrawn as the colon was fully examined. Scope withdrawal time was 10 minutes. COLON FINDINGS: A firm and ulcerated mass measuring 1.5 X 1.5cm in size was found at the appendiceal orifice. Multiple biopsies of the lesion were performed using cold forceps. Retroflexed views revealed no abnormalities. The scope was then completely withdrawn from the patient and the procedure terminated. ADVERSE EVENTS: There were no complications. IMPRESSIONS: Mass measuring 1.5 X 1.5cm in size was found at the appendiceal orifice; multiple biopsies of the lesion were performed RECOMMENDATIONS: 1. avoid NSAIDS for 2 weeks 2. await biopsy results 3. follow-up: office 2 week(s) 4. Monitor for any evidence of rectal bleeding. 5. CT scan / metastatic workup 6. increase dietary water 7. surgery - will need surgical excision RECALL: Wai Redd DR eSigned: Wai Redd DR 07/30/2019 10:41 AM cc: CPT CODES: ICD9 CODES: PATIENT NAME: Torito Garcia MR#: [id number]
[2019-07-30 11:12] VITALS: BP 98/59; TEMP 98.9; O2SAT 100
== END 2019-07-30 11:18 | disposition home or self-care (01) ==
LOC: OR 08:45
PROVIDERS: ATTEND Surgery
PROC: 0DBH8ZX Excision of Cecum, Via Natural or Artificial Opening Endoscopic, Diagnostic (ICD-10-PCS; principal; 2019-07-30 10:15)
DX: D12.1 Benign neoplasm of appendix (principal); K64.8 Other hemorrhoids; I10 Essential (primary) hypertension; E66.9 Obesity, unspecified; Z68.36 Body mass index [BMI] 36.0-36.9, adult; Z86.010 Personal history of colon polyps; Z88.6 Allergy status to analgesic agent; Z82.49 Family history of ischemic heart disease and other diseases of the circulatory system
CPT/HCPCS: 88305; 45380; J2704 ×2; J7120

== ENCOUNTER 2019-08-25 07:47 | Inpatient (IN) | payer OTHER ==
[2019-08-26 15:36] VITALS: BMI 35.2
[2019-08-28 12:07] VITALS: BP 137/76; TEMP 98.1
[2019-08-28 14:16] VITALS: O2SAT 98
== END 2019-08-28 12:52 | disposition home or self-care (01) | DRG 331 ==
LOC: OR 07:47 → 2ND 14:39 → OBSVTOIN 08-26 11:38
PROVIDERS: ADMIT Surgery; ATTEND Surgery
PROC: 0DTF0ZZ Resection of Right Large Intestine, Open Approach (ICD-10-PCS; principal; 2019-08-25)
PROC: 0DNF0ZZ Release Right Large Intestine, Open Approach (ICD-10-PCS; 2019-08-25)
PROC: 0DN80ZZ Release Small Intestine, Open Approach (ICD-10-PCS; 2019-08-25)
DX: C18.2 Malignant neoplasm of ascending colon (principal); K66.0 Peritoneal adhesions (postprocedural) (postinfection); Z79.899 Other long term (current) drug therapy; E66.9 Obesity, unspecified; Z68.35 Body mass index [BMI] 35.0-35.9, adult
CPT/HCPCS: 36415; 71045; 74018; 80048; 82947; 83735; 84100; 85025; 86850; 86900; 86901; 88305; 88309; 94760; 97161; G0378; J0690; J1100; J1170; J1650; J2250; J2405; J2543; J2704; J2710; J3010; J7120; P9045

== ENCOUNTER 2019-09-02 20:19 | Emergency (ER) | payer OTHER ==
--- NOTE | 2019-09-02 21:58 | ER ---
Nurse's Notes [facility] Name: Torito Garcia Age: 69 yrs Sex: Male : 1950 Arrival Date: 09/02/2019 Time: 20:22 Bed 25 Private MD: Diagnosis: Cellulitis and acute lymphangitis of face Presentation: 09/01 20:49 Chief complaint: Patient states: RASH ON FACE AND REDNESS ON HANDS. HANDS BURN WHEN HE ls4 TOOK A SHOWER. FEVER T MAX 103. TEMP WAS 101 AND TOOK 400 MG IBUPROFEN AT 7 PM. PT HAD WET COUGH THIS MORNING WHEN HE WOKE UP. HE STATES HE CLEARED IT AND NO COUGH REST OF DAY. DENIES SHORTNESS OF BREATH. IT WAS A WET MUCOUSY COUGH, BUT HAS NOT COUGHED SINCE THEN. Coronavirus screen: Surgical mask placed on patient. Patient moved to private room, placed in contact and droplet isolation with eye protection until further assessment. Patient reports a cough. Patient denies shortness of breath or difficulty breathing. Patient reports a measured and/or subjective temperature greater than 100.4F. Patient denies travel on a cruise ship or to a country the [facility] currently lists as an affected area. Patient denies contact with known and/or suspected case of COVID-19. Ebola Screen: No symptoms or risks identified at this time. Initial Sepsis Screen: Does the patient meet any 2 criteria? HR > 90 bpm. Does the patient have a suspected source of infection? No. Patient's initial sepsis screen is negative. Risk Assessment: Do you want to hurt yourself or someone else? Patient reports no desire to harm self or others. Onset of symptoms was September 02, 2019. Care prior to arrival: Medication(s) given: Motrin, 400 mg. Activity prior to arrival: None. 20:49 Method Of Arrival: Ambulatory ls4 20:49 Acuity: SAIGE 3 ls4 Triage Assessment: 20:59 General: Appears in no apparent distress. comfortable, Behavior is calm, cooperative. ls4 Pain: Denies pain. Neuro: No deficits noted. Cardiovascular: No deficits noted. Denies chest pain. Respiratory: Reports cough that is productive, THIS MORNING UPON AWAKENING, NO COUGH SINCE. GI: Abdomen is round Last BM was September 02, 2019. Bowel sounds present X 4 quads. Abd is soft and non tender X 4 quads. PT HAS ABDOMINAL BINDER IN PLACE. SURGERY ON ABDOMEN LAST FRIDAY TO REMOVE COLON CA. : No signs and/or symptoms were reported regarding the genitourinary system. Derm: Skin is dry, Skin is pink, warm \T\ dry. Rash noted that is red, raised, urticaria, on right eye, right cheek, left cheek and left eye Reports burning, HANDS. Musculoskeletal: No deficits noted. No signs and/or symptoms reported regarding the musculoskeletal system. Historical: - Allergies: 20:59 Morphine; ls4 - Home Meds: 20:59 atenolol 25 mg oral tab 1 tab once daily [Active]; lisinopril 10 mg oral tab 1 tab once ls4 daily [Active]; - PSHx: 20:59 COLON RESECTION; HERNIA REPAIR; ls4 - Immunization history:: Adult Immunizations up to date, MARCH 2019. Flu vaccine is up to date. - Social history:: Smoking status: Patient denies any tobacco usage or history of. Patient/guardian denies using alcohol, street drugs, The patient lives with family. - Family history:: not pertinent. Screenin:08 Abuse screen: Denies threats or abuse. Denies injuries from another. Nutritional ls4 screening: No deficits noted. Tuberculosis screening: No symptoms or risk factors identified. Fall Risk None identified. Assessment: 21:13 General: Appears in no apparent distress. comfortable. Neuro: No deficits noted. ls4 Cardiovascular: No deficits noted. Respiratory: No deficits noted. 22:29 Reassessment: Patient appears in no apparent distress at this time. Patient and/or ls4 family updated on plan of care and expected duration. Pain level reassessed. Patient is alert, oriented x 3, equal unlabored respirations, skin warm/dry/pink. Vital Signs: 20:49 BP 116 / 65; Pulse 96; Resp 16; Temp 99.6; Pulse Ox 98% on R/A; Pain 0/10; ls4 22:29 BP 109 / 54; Pulse 78; Resp 14; Temp 98.9(O); Pulse Ox 98% on R/A; Pain 0/10; ls4 ED Course: 20:22 Patient arrived in ED. bp1 20:35 Zoila Oropeza, RN is Primary Nurse. ls4 20:56 Triage completed. ls4 20:59 Arm band placed on. ls4 21:08 Patient has correct armband on for positive identification. Bed in low position. Call ls4 light in reach. Side rails up X 1. Pulse ox on. NIBP on. 21:08 No provider procedures requiring assistance completed. Patient maintains SpO2 ls4 saturation greater than 95% on room air. 21:22 Tao Persaud MD is Attending Physician. ma2 Administered Medications: 22:10 Drug: Benadryl 25 mg Route: IM; Site: left deltoid; ls4 22:30 Follow up: Response: No adverse reaction ls4 22:10 Drug: predniSONE 40 mg Route: PO; ls4 22:30 Follow up: Response: No adverse reaction ls4 22:10 Drug: Augmentin 875 mg Route: PO; ls4 22:30 Follow up: Response: No adverse reaction ls4 Outcome: 21:57 Discharge ordered by . ma2 22:30 Patient left the ED. ls4 22:30 Discharged to home ambulatory. ls4 22:30 Condition: stable 22:30 Discharge instructions given to patient, Instructed on discharge instructions, follow up and referral plans. medication usage, Demonstrated understanding of instructions, follow-up care, medications, Prescriptions given X 3. Signatures: Tao Persaud MD MD ma2 Zoila Oropeza RN RN ls4 Jeannette Burnett
--- NOTE | 2019-09-02 21:58 | EDPHYS ---
Physician Documentation [facility] Name: Torito Garcia Age: 69 yrs Sex: Male : 1950 Arrival Date: 09/02/2019 Time: 20:22 Bed 25 Private MD: ED Physician Tao Persaud HPI: 09/01 21:55 This 69 yrs old Male presents to ER via Ambulatory with complaints of Fever, ma2 Rash. 21:55 The patient reports fever, that was measured at 103 degrees Fahrenheit. Associated ma2 signs and symptoms: Pertinent negatives: altered mental status, backache, chills, cough, night sweats, runny nose. Severity of symptoms: At their worst the symptoms were very mild in the emergency department the symptoms are unchanged. The patient has not experienced similar symptoms in the past. Historical: - Allergies: 20:59 Morphine; ls4 - Home Meds: 20:59 atenolol 25 mg oral tab 1 tab once daily [Active]; lisinopril 10 mg oral tab 1 tab once ls4 daily [Active]; - PSHx: 20:59 COLON RESECTION; HERNIA REPAIR; ls4 - Immunization history:: Adult Immunizations up to date, MARCH 2019. Flu vaccine is up to date. - Social history:: Smoking status: Patient denies any tobacco usage or history of. Patient/guardian denies using alcohol, street drugs, The patient lives with family. - Family history:: not pertinent. ROS: 21:55 Constitutional: Negative for fever, chills, and weight loss. ma2 21:55 All other systems are negative. Exam: 21:55 Constitutional: This is a well developed, well nourished patient who is awake, alert, ma2 and in no acute distress. Head/Face: facial redness and hives, no ttp, no fluctuence Normocephalic, atraumatic. Eyes: Pupils equal round and reactive to light, extra-ocular motions intact. Lids and lashes normal. Conjunctiva and sclera are non-icteric and not injected. Cornea within normal limits. Periorbital areas with no swelling, redness, or edema. ENT: Nares patent. No nasal discharge, no septal abnormalities noted. Tympanic membranes are normal and external auditory canals are clear. Oropharynx with no redness, swelling, or masses, exudates, or evidence of obstruction, uvula midline. Mucous membranes moist. Neck: Trachea midline, no thyromegaly or masses palpated, and no cervical lymphadenopathy. Supple, full range of motion without nuchal rigidity, or vertebral point tenderness. No Meningismus. Chest/axilla: Normal chest wall appearance and motion. Nontender with no deformity. No lesions are appreciated. Cardiovascular: Regular rate and rhythm with a normal S1 and S2. No gallops, murmurs, or rubs. Normal PMI, no JVD. No pulse deficits. Respiratory: Lungs have equal breath sounds bilaterally, clear to auscultation and percussion. No rales, rhonchi or wheezes noted. No increased work of breathing, no retractions or nasal flaring. Abdomen/GI: Soft, non-tender, with normal bowel sounds. No distension or tympany. No guarding or rebound. No evidence of tenderness throughout. Vital Signs: 20:49 BP 116 / 65; Pulse 96; Resp 16; Temp 99.6; Pulse Ox 98% on R/A; Pain 0/10; ls4 22:29 BP 109 / 54; Pulse 78; Resp 14; Temp 98.9(O); Pulse Ox 98% on R/A; Pain 0/10; ls4 MDM: 21:[address] [facility] 21:55 Differential diagnosis: allergic reaction vs cellulitis no abscess. Data reviewed: [facility] vital signs, nurses notes. Counseling: I had a detailed discussion with the patient and/or guardian regarding: the historical points, exam findings, and any diagnostic results supporting the discharge/admit diagnosis, the presence of at least one elevated blood pressure reading (>120/80) during this emergency department visit, the need for outpatient follow up. Response to treatment: the patient's symptoms have markedly improved after treatment. Administered Medications: 22:10 Drug: Benadryl 25 mg Route: IM; Site: left deltoid; ls4 22:30 Follow up: Response: No adverse reaction ls4 22:10 Drug: predniSONE 40 mg Route: PO; ls4 22:30 Follow up: Response: No adverse reaction ls4 22:10 Drug: Augmentin 875 mg Route: PO; ls4 22:30 Follow up: Response: No adverse reaction 4 Disposition: 04/09/20 21:57 Discharged to Home. Impression: Cellulitis and acute lymphangitis of face. - Condition is Stable. - Discharge Instructions: Cellulitis, Adult. - Prescriptions for Augmentin 875- 125 mg Oral Tablet - take 1 tablet by ORAL route every 12 hours for 10 days; 20 tablet. Benazepril 10 mg Oral Tablet - take 1 tablet by ORAL route once daily; 30 tablet. Medrol (Toby) 4 mg Oral Tablets, Dose Pack - take 1 tablet by ORAL route as directed - follow package instructions; 1 packet. - Medication Reconciliation Form, Thank You Letter, Antibiotic Education, Prescription Opioid Use form. - Follow up: Private Physician; When: Tomorrow; Reason: Recheck today's complaints. Signatures: Tao ePrsaud MD MD ma2 Zoila Oropeza RN RN ls4 Corrections: (The following items were deleted from the chart) 22:30 21:57 09/02/2019 21:57 Discharged to Home. Impression: Cellulitis and acute ls4 lymphangitis of face. Condition is Stable. Prescriptions for Augmentin 875-125 mg Oral Tablet - take 1 tablet by ORAL route every 12 hours for 10 days; 20 tablet, Benazepril 10 mg Oral Tablet - take 1 tablet by ORAL route once daily; 30 tablet, Medrol (Toby) 4 mg Oral Tablets, Dose Pack - take 1 tablet by ORAL route as directed - follow package instructions; 1 packet. and Forms are Medication Reconciliation Form, Thank You Letter, Antibiotic Education, Prescription Opioid Use. Follow up: Private Physician; When: Tomorrow; Reason: Recheck today's complaints. ma2
[2019-09-02] MEDS ORDERED: DIPHENHYDRAMINE 50 MG/ML VIAL ONE (22:15)
[2019-09-02] MEDS ORDERED: predniSONE 20 MG TAB ONE (22:15)
[2019-09-02] MEDS ORDERED: AMOX/K CLAV 875 MG TAB ONE (22:16)
[2019-09-02 22:35] VITALS: BP 116/65; TEMP 99.6; O2SAT 98
== END 2019-09-02 22:30 | disposition home or self-care (01) ==
LOC: ER 20:19
DX: L03.211 Cellulitis of face (principal); L03.212 Acute lymphangitis of face; Z88.5 Allergy status to narcotic agent
CPT/HCPCS: 96372; 99284; J1200; J7512

== ENCOUNTER 2020-03-15 08:20 | Day surgery (SDC) | payer OTHER ==
[2020-03-15] MEDS ORDERED: Ringers Lactate 1,000 ML IV ONE (08:42)
[2020-03-15] MEDS ORDERED: LIDOCAINE 1% MPF 30 ML VIAL ONE (09:14)
[2020-03-15] MEDS ORDERED: propofoL 200 MG/20 ML VIAL IV ONE (09:14)
[2020-03-15] MEDS ORDERED: GLYCOPYRROLATE 0.2 MG/ML SYR ONE (09:19)
--- NOTE | 2020-03-15 09:36 | ENDO RPT ---
[address], [address] COLONOSCOPY PROCEDURE REPORT EXAM DATE: 03/15/2020 PATIENT NAME: Torito Garcia MR #: [id number] BIRTHDATE: 1950 ATTENDING: Wai Redd DR STATUS: outpatient PEEL OVEN TENDER: Randy Alfred and Ria Self RN INDICATIONS: The patient is a 69 yr old Male here for a colonoscopy due to colon cancer screening, surveillance, and history of colon cancer PROCEDURE PERFORMED: Colonoscopy MEDICATIONS: Per Anesthesia. ESTIMATED BLOOD LOSS: None CONSENT: The patient understands the risks and benefits of the procedure and understands that these risks include, but are not limited to: sedation, allergic reaction, infection, perforation and/or bleeding. Alternative means of evaluation and treatment include, among others: physical exam, x-rays, and/or surgical intervention. The patient elects to proceed with this endoscopic procedure. DESCRIPTION OF PROCEDURE: During intra-op preparation period all mechanical medical equipment was checked for proper function. Hand hygiene and appropriate measures for infection prevention was taken. Procedure, possible complications, alternatives including, but not limited to possibility of bleeding, perforation, tear, infection, sepsis, need for surgery, need for blood transfusion, were explained to the patient. After the risks, benefits and alternatives of the procedure were thoroughly explained, Informed consent was verified, confirmed and timeout was successfully executed by the treatment team. The patient was placed in the left lateral position. A digital rectal exam was performed and revealed internal hemorrhoids. After appropriate level of anesthesia, the scope was passed. The EC-3890Li ([id number]) endoscope was introduced through the anus and advanced to the ileum. The quality of the prep was fair. The instrument was then slowly withdrawn as the colon was fully examined. Scope withdrawal time was 9 minutes. COLON FINDINGS: Mild diverticulosis was noted in the sigmoid colon. No bleeding was noted from the diverticulosis. Small internal hemorrhoids were found. Retroflexed views revealed no abnormalities. The scope was then completely withdrawn from the patient and the procedure terminated. ADVERSE EVENTS: There were no complications. IMPRESSIONS: 1. Mild diverticulosis was noted in the sigmoid colon 2. Small internal hemorrhoids RECOMMENDATIONS: 1. fiber rich diet 2. Monitor for any evidence of rectal bleeding. 3. yearly hemoquant 4. continue surveillance 5. hemorrhoidal hygiene 6. increase dietary water RECALL: Return in 1 year(s) for Colonoscopy. Wai Redd DR eSigned: Wai Redd DR 03/15/2020 9:35 AM cc: CPT CODES: ICD9 CODES: PATIENT NAME: Torito Garcia MR#: [id number]
[2020-03-15 10:18] VITALS: TEMP 97.1
[2020-03-15 10:20] VITALS: BP 94/65; O2SAT 95
== END 2020-03-15 10:00 | disposition home or self-care (01) ==
LOC: OR 08:20
PROVIDERS: ATTEND Surgery
PROC: 0DJD8ZZ Inspection of Lower Intestinal Tract, Via Natural or Artificial Opening Endoscopic (ICD-10-PCS; principal; 2020-03-15 09:45)
DX: Z85.038 Personal history of other malignant neoplasm of large intestine (principal); K64.8 Other hemorrhoids; K57.30 Diverticulosis of large intestine without perforation or abscess without bleeding; Z20.828 Contact with and (suspected) exposure to other viral communicable diseases
CPT/HCPCS: 45378; U0002; J2704; J7120

== ENCOUNTER 2021-03-22 10:35 | Day surgery (SDC) | payer OTHER ==
[2021-03-22] MEDS ORDERED: Ringers Lactate 1,000 ML IV ONE (11:54)
[2021-03-22] MEDS ORDERED: propofoL 200 MG/20 ML VIAL IV ONE (13:23)
[2021-03-22] MEDS ORDERED: LIDOCAINE 1% MPF 5 ML VIAL ONE (13:23)
--- NOTE | 2021-03-22 13:33 | ENDO RPT ---
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 ESTIMATED BLOOD LOSS: None CONSENT: The patient understands the risks and benefits of the procedure and understands that these risks include, but are not limited to: sedation, allergic reaction, infection, perforation and/or bleeding. Alternative means of evaluation and treatment include, among others: physical exam, x-rays, and/or surgical intervention. The patient elects to proceed with this endoscopic procedure. DESCRIPTION OF PROCEDURE: During intra-op preparation period all mechanical medical equipment was checked for proper function. Hand hygiene and appropriate measures for infection prevention was taken. Procedure, possible complications, alternatives including, but not limited to possibility of bleeding, perforation, tear, infection, sepsis, need for surgery, need for blood transfusion, were explained to the patient. After the risks, benefits and alternatives of the procedure were thoroughly explained, Informed consent was verified, confirmed and timeout was successfully executed by the treatment team. The patient was placed in the left lateral position. A digital rectal exam was performed and revealed internal hemorrhoids. After appropriate level of anesthesia, the scope was passed. The EC-3890Li ([id number]) endoscope was introduced through the anus and advanced to the ileum. The quality of the prep was good. The instrument was then slowly withdrawn as the colon was fully examined. Scope withdrawal time was 9 minutes. COLON FINDINGS: A normal appearing cecum, ileocecal valve, and appendiceal orifice were identified. the ascending, transverse, descending, sigmoid colon, and rectum appeared unremarkable. There was evidence of a functional end-to-end and normal appearing prior surgical anastomosis with visible sutures in the right colon. Retroflexed views revealed no abnormalities. The scope was then completely withdrawn from the patient and the procedure terminated. ADVERSE EVENTS: There were no complications. IMPRESSIONS: 1. A normal appearing cecum, ileocecal valve, and appendiceal orifice were identified. the ascending, transverse, descending, sigmoid colon, and rectum appeared unremarkable 2. There was evidence of prior surgical anastomosis in the right colon 3. Internal hemorrhoids RECOMMENDATIONS: 1. fiber rich diet 2. Monitor for any evidence of rectal bleeding. 3. hemorrhoidal hygiene 4. yearly hemoquant RECALL: Return in 1 year(s) for Colonoscopy. Wai Redd DR eSigned: Wai Redd DR 03/22/2021 1:32 PM cc: CPT CODES: ICD9 CODES: PATIENT NAME: Torito Garcia MR#: [id number]
[2021-03-22 14:23] VITALS: BP 103/76; TEMP 97.5; O2SAT 98
== END 2021-03-22 14:18 | disposition home or self-care (01) ==
LOC: OR 10:35
PROVIDERS: ATTEND Surgery
PROC: 0DJD8ZZ Inspection of Lower Intestinal Tract, Via Natural or Artificial Opening Endoscopic (ICD-10-PCS; principal; 2021-03-22 13:00)
DX: Z85.038 Personal history of other malignant neoplasm of large intestine (principal); K64.8 Other hemorrhoids; Z20.822 Contact with and (suspected) exposure to COVID-19
CPT/HCPCS: U0003; J2704; J7120; G0121

== ENCOUNTER 2023-06-19 10:15 | Day surgery (SDC) | payer MEDICARE ==
[2023-06-18 15:38] LABS: Potassium 4.2 mEq/L (3.5-5.1)
[2023-06-19] MEDS ORDERED: Ringers Lactate 1,000 ML IV ONE (10:45)
[2023-06-19 11:18] VITALS: O2SAT 96
[2023-06-19] MEDS ORDERED: LIDOCAINE 1% MPF 30 ML VIAL ONE (13:07)
[2023-06-19] MEDS ORDERED: propofoL 200 MG/20 ML VIAL IV ONE (13:08)
[2023-06-19 14:44] VITALS: BP 120/78; TEMP 98
--- NOTE | 2023-06-19 16:28 | EKG ---
Test Date: 2023-06-18 Test Time: 15:38:20 Recycling Operations Manager: TAMARA MEASUREMENT RESULTS: Intervals: Rate: 86 PA: 178 QRSD: 92 QT: 344 QTc: 411 [place]: P: 79 PA: 178 QRS: -42 T: 77 INTERPRETIVE STATEMENTS: Normal sinus rhythm Left axis deviation Septal infarct, age undetermined Abnormal ECG Compared to ECG 03/15/2019 08:56:29 Left-axis deviation now present Sinus bradycardia no longer present Myocardial infarct finding still present Electronically Signed On 06-19-23 16:25:56 MESH WORKER by Reuben Smith
== END 2023-06-19 14:35 | disposition home or self-care (01) ==
LOC: OR 10:15
PROVIDERS: ATTEND Surgery
PROC: 0DBB8ZX Excision of Ileum, Via Natural or Artificial Opening Endoscopic, Diagnostic (ICD-10-PCS; principal; 2023-06-19 12:00)
DX: Z12.11 Encounter for screening for malignant neoplasm of colon (principal); Z85.038 Personal history of other malignant neoplasm of large intestine; K62.89 Other specified diseases of anus and rectum; K52.9 Noninfective gastroenteritis and colitis, unspecified
CPT/HCPCS: 93005; 80048; 36415; 45380; J2704; J2001; J7120

== ENCOUNTER 2024-07-09 08:42 | Day surgery (SDC) | payer MEDICARE, OTHER ==
[2024-07-07 11:37] LABS: Absolute Eosinophils 0.2 K/uL (0-0.5); Absolute Lymphocytes (CBC) 2.4 K/uL (0.7-4.9); Absolute Monocytes 0.4 K/uL (0.1-1.3); Absolute Neutrophil 4.1 K/uL (1.8-8.0); Basophils % 0.5 % (0-1.3); Eosinophils % 3.4 % (0-4.4); Hematocrit 44.5 % (39.6-49.0); Hemoglobin 14.7 g/dL (13.6-17.9); Lymphocytes % 34.1 % (15.3-44.8); MCH 29.5 pg (27.0-35.0); MCHC 33.1 g/dL (32.0-36.0); MCV 89.2 fL (80-100); MPV 7.8 fL (7.6-11.3); Monocytes % 5.2 % (3.3-12.3); Neutrophils % 56.8 % (41.7-73.7); Platelets 214 thou/uL (152-406); RBC Red Blood Cell Count 4.99 M/uL (4.33-5.43); Red Cell Distribution Width 13.4 % (12.1-15.2)
[2024-07-07 11:50] LABS: Anion Gap 5.5 mEq/L (5.0-15.0); Potassium 4.5 mEq/L (3.5-5.1)
[2024-07-09] MEDS: Ringers Lactate 1,000 ML IV ONE (09:05)
[2024-07-09] MEDS ORDERED: LIDOCAINE 1% MPF 5 ML VIAL ONE (10:30)
[2024-07-09] MEDS ORDERED: propofoL 200 MG/20 ML VIAL IV ONE (10:30)
[2024-07-09 12:22] VITALS: O2SAT 95
[2024-07-09 12:23] VITALS: BP 116/68; TEMP 98
== END 2024-07-09 11:39 | disposition home or self-care (01) ==
LOC: OR 08:42
PROVIDERS: ATTEND Surgery
PROC: 0DJD8ZZ Inspection of Lower Intestinal Tract, Via Natural or Artificial Opening Endoscopic (ICD-10-PCS; principal; 2024-07-09 10:15)
DX: Z12.11 Encounter for screening for malignant neoplasm of colon (principal); K57.32 Diverticulitis of large intestine without perforation or abscess without bleeding; K64.8 Other hemorrhoids; K63.89 Other specified diseases of intestine; Z86.0100 Personal history of colon polyps, unspecified; Z85.038 Personal history of other malignant neoplasm of large intestine
CPT/HCPCS: 93005; 85025; 80048; 36415; J2704; J2003; J7120; G0105